=== PATIENT | male | born 1950 | race Caucasian/White ===

== ENCOUNTER 2018-11-15 14:31 | Inpatient (IN) | payer MEDICARE, MEDICAID ==
[2018-11-15] VITALS (8 sets, daily range): BP systolic 110–130; BP diastolic 63–79
[~2018-11-15] VITALS: Ht 167.6 cm; Wt 81.2 kg
[~2018-11-15 14:31] MED LIST: LIDOcaine 2% (20 mg/ml) 5ml cardiac syringe ONE; albumin (human) 25% 100 ML IV solution IV ONE; aminocaproic acid 250 MG/1 ML inj. ONE; calcium chloride 100 MG/1 ML inj IV ONE; heparin 1,000 units/ml 10ml inj ONE; heparin 10,000 units/1 ML INJ ONE; magnesium 1 GM/2 ML inj ONE; methylPREDNISolone sod succ 125mg/2ml vial ONE; papaverine 30 mg/ml 2ml inj. ONE; phenylephrine 10mg/ml inj. ONE; potassium Cl 2 mEq/ml inj IV ONE; sodium bicarbonate (8.4%) 1 mEq/ml syringe ONE
[2018-11-15] MEDS ORDERED: diphenhydrAMINE 25mg capsule PO PRN (15:00)
[2018-11-15] MEDS ORDERED: LIDOcaine/PRILOcaine 5gm cream TP ONE (15:00)
[2018-11-15] MEDS ORDERED: LORazepam 0.5 MG tablet PO PRN (15:00)
[2018-11-15] MEDS ORDERED: ALBU18HF2 INH (16:49)
[2018-11-15] MEDS ORDERED: MONT10TA21 PO (16:49)
[2018-11-15] MEDS ORDERED: INSU100C4 SQ (16:49)
[2018-11-15] MEDS ORDERED: FLUT12AE5 IH (16:49)
[2018-11-15] MEDS ORDERED: CARSR60C PO (16:49)
[2018-11-15] MEDS ORDERED: METF500T PO (16:49)
[2018-11-15] MEDS ORDERED: FLUO20CA39 PO (16:49)
[2018-11-15] MEDS ORDERED: INSU300I3 SUBCUT (16:49)
[2018-11-15] MEDS ORDERED: ATOR20TA PO (16:49)
[2018-11-15] MEDS ORDERED: ASPI-1265 PO (16:49)
[2018-11-15] MEDS ORDERED: ENAL20TA75 PO (16:49)
[2018-11-15] MEDS ORDERED: CLOP75TA35 PO (16:49)
[2018-11-15] MEDS ORDERED: HYDR-4353 PO (16:49)
[2018-11-15] MEDS: normal saline 1,000 ML IV SCH ×2 (17:30→22:17)
[2018-11-15] MEDS ORDERED: midazolam 2 mg/2 ml injection ONE (18:06)
[2018-11-15] MEDS ORDERED: fentaNYL/PF 50MCG/1 ML 2ML syringe ONE (18:06)
[2018-11-15] MEDS ORDERED: LIDOcaine 1% (10mg/ml)w/preservative injection 20ml MDV ONE (18:06)
[2018-11-15] MEDS ORDERED: iohexol 350MG/ML 100ml bottle IV ONE (18:07)
[2018-11-15] MEDS ORDERED: iohexol 350 MG/ML 50ML vial IV ONE (18:31)
[2018-11-15] MEDS ORDERED: MESSAGE TO PHARMACY PO ONE (19:15)
[2018-11-15] MEDS ORDERED: glucagon, human recombinant 1mg kit SUBCUT PRN (19:15)
[2018-11-15] MEDS ORDERED: dextrose 50%-water 50ml dispensing syringe IV PRN (19:15)
[2018-11-15] MEDS ORDERED: dextrose ORAL solution 15 GM/59 ML bottle PO PRN ×2 (19:15)
[2018-11-15] MEDS ORDERED: dextrose 50%-water 50ml dispensing syringe IV ONE (19:21)
[2018-11-15] MEDS: dextrose 50%-water 50ml dispensing syringe IV PRN ×2 (19:24→20:54)
[2018-11-15] MEDS ORDERED: albuterol 2.5 MG/3 ML nebule NEB PRN (19:50)
[2018-11-15] MEDS: budesonide 0.5mg/2ml UD nebule IH SCH (20:00)
--- NOTE | 2018-11-15 20:10 | NUR ---
Problems reprioritized. Patient report given, questions answered & plan of care reviewed with GIOVANNA Urena, I will be taking pt to [facility] rm#311.
--- NOTE | 2018-11-15 20:30 | NUR ---
VSS, pt is in stable condition, You [place] CDI, pt is in [facility] rm#311, pt is in the care of GIOVANNA Malin.
[2018-11-15] MEDS: insulin glargine (Lantus) pen - multi-dose SQ SCH (21:00)
--- NOTE | 2018-11-15 21:14 | NUR ---
reported to Joshua HEREDIA via telephone, awaiting transfer to room 347 Addendum: 11/15/18 at 2116 by Jacky Burkett RN note not for patient, wrong patient.
--- NOTE | 2018-11-15 23:21 | NUR ---
pt not responsive to verbal. blood glucose 30, 1 amp of dextrose 50 administered. recheck blood glucose greater than 150. will continue to monitor. pt ate 1 turkey sandwich and 240 milk. will continue to monitor. new orders. noted. Addendum: 11/16/18 at 0648 by Jacky Burkett RN DR. HEAD, NOTIFIED. NO CODE STATUS NOTED. NO PHYSICAN ASSIGNED TO PT.
[2018-11-16] MEDS ORDERED: dextrose 5%-normal saline 1,000 ML IV SCH (01:45)
--- NOTE | 2018-11-16 02:00 | NUR ---
PT A/O X4. VERBALLY AROUSABLE. MAINTAINED, BLOOD GLUCOSE WITH OUT D5NS. WILL CONTINUE TO MONITOR BLOOD GLUCOSE.
[2018-11-16 02:33] VITALS: BP 133/60
[2018-11-16 06:00] VITALS: BP 162/86
[2018-11-16] MEDS: normal saline 1,000 ML IV SCH ×2 (06:00→15:26)
--- NOTE | 2018-11-16 06:00 | NUR ---
Patient in room MED 311. I have received report from GIOVANNA Rico and had the opportunity to ask questions and assume patient care.
[2018-11-16] MEDS: budesonide 0.5mg/2ml UD nebule IH SCH ×2 (07:35→20:27)
[2018-11-16] MEDS ORDERED: diltiazem SR 60mg capsule (twice daily) PO SCH (08:00)
[2018-11-16] MEDS ORDERED: clopidogrel 75mg tablet PO SCH (08:00)
[2018-11-16] MEDS: FLUoxetine 20mg capsule PO SCH (08:27)
[2018-11-16] MEDS: aspirin 81mg tab.chew PO SCH (08:27)
[2018-11-16] MEDS: atorvastatin 20mg tablet PO SCH (08:27)
[2018-11-16] MEDS: montelukast 10mg tablet PO SCH (08:27)
[2018-11-16] MEDS: lisinopril 20mg tablet PO SCH ×2 (08:27→21:01)
[2018-11-16] MEDS: HYDROcodone/acetaminophen 10/325mg tab PO PRN ×3 (08:28→23:29)
[2018-11-16] MEDS ORDERED: MESSAGE TO NURSING PO ONE ×2 (09:50)
[2018-11-16 11:00] VITALS: BP 149/78
--- NOTE | 2018-11-16 11:13 | NUR ---
Paged hospitalist group to have pt assigned
--- NOTE | 2018-11-16 11:19 | NUR ---
received call back from Dr. Burnette that he will take patient
[2018-11-16 11:30] LABS: HEMATOCRIT 39.1 % (42.0-52.0); HEMOGLOBIN 12.5 g/dl (14.0-17.9); MEAN CORPUSCULAR HGB CONC 32.1 g/dL (33.0-36.5); MEAN CORPUSCULAR VOLUME 87.2 FL (78-98); MEAN PLATELET VOLUME 8.5 FL (7.4-10.4); PLATELET COUNT 285 X10'3 (140-440); RED BLOOD COUNT 4.48 X10'6 (4.70-6.10); RED CELL DISTRIBUTION WIDTH 16.2 % (11.5-14.5); WHITE BLOOD COUNT 8.6 X10'3 (4.5-11.0)
[2018-11-16 11:40] LABS: PARTIAL THROMBOPLASTIN TIME 29 SECONDS (22-32)
[2018-11-16 11:49] LABS: ALANINE AMINOTRANSFERASE 16 U/L (12-78); ALBUMIN/GLOBULIN RATIO 0.6 (1.1-1.5); ALKALINE PHOSPHATASE 91 IU/L (46-116); ANION GAP 5 (8-16); ASPARTATE AMINO TRANSFERASE 16 U/L (10-37); BILIRUBIN,TOTAL 0.6 MG/DL (0.1-1.0); BLOOD UREA NITROGEN 21 MG/DL (7-18); BUN/CREATININE RATIO 21.9 (5.4-32.0); CALCIUM 8.1 MG/DL (8.5-10.1); CHLORIDE 106 MMOL/L (99-107); CREATININE 0.96 MG/DL (0.60-1.10); GLUCOSE 201 MG/DL (70-104); POTASSIUM 5.4 MMOL/L (3.5-5.1); SODIUM 137 MMOL/L (135-145); TOTAL CARBON DIOXIDE 25.8 MMOL/L (24-32); TOTAL PROTEIN 7.9 G/DL (6.4-8.2); eGFR 78 ML/MIN
--- NOTE | 2018-11-16 12:22 | NUR ---
DM Consult: A1C 8.9. Pt/family seen by ADITYA for written/verbal DM ed w/ RD contact information provided. Pt reports going to OR for CABG this admit. RD provided verbal high protein ed; pt agrees to double meats TIDWM. Pt passive to DM ed and family declined verbal DM ed. Pt many dislikes: coffee, tea, jello, pasta, north korean yogurt, cottage cheese, bananas. Dietary notified of preferences. LBM 11/14. Will monitor for additional protein needs and f/u CABG/HH eds once stable post-op. Addendum: 11/16/18 at [address] Amended: Links added. Addendum: 11/16/18 at [address] DM Consult: A1C 8.9. Pt/family seen by ADITYA for written/verbal DM ed w/ RD contact information provided. Pt reports going to OR for CABG this admit. RD provided verbal high protein ed; pt agrees to double meats TIDWM. Pt passive to DM ed and family declined verbal DM ed. Pt many dislikes: coffee, tea, jello, pasta, north korean yogurt, cottage cheese, bananas. Dietary notified of preferences. SO reports pt "eats what he wants and takes his DM shots as prescribed." LBM 11/14. Will monitor for additional protein needs and f/u CABG/HH eds once stable post-op.
[2018-11-16] MEDS ORDERED: DILT-36 PO (14:06)
[2018-11-16] MEDS: insulin Lispro (HumaLOG) vial - multi-dose SQ SCH ×2 (14:15→19:01)
[2018-11-16 15:00] VITALS: BP 132/67
[2018-11-16 18:00] VITALS: BP 103/68
--- NOTE | 2018-11-16 18:00 | NUR ---
Patient in room MED 311. I have received report from Jessica/Lanny HEREDIA's and had the opportunity to ask questions and assume patient care.
--- NOTE | 2018-11-16 18:37 | NUR ---
Problems reprioritized. Patient report given, questions answered & plan of care reviewed with GIOVANNA Cramer.
--- NOTE | 2018-11-16 18:46 | NUR ---
Student documentation and med administration: I have reviewed and agree with all interventions, assessments performed and documented by Jessica HEREDIA.
[2018-11-16] MEDS: ipratropium/albuterol 3ml nebule NEB SCH (20:26)
[2018-11-16] MEDS: insulin glargine (Lantus) pen - multi-dose SQ SCH (21:09)
[2018-11-16 22:00] VITALS: BP 115/68
--- NOTE | 2018-11-17 02:30 | NUR ---
311 Lewis Ortiz Patient needs hiflow Oxygen to RT, will page Raphael to request fluids dc'd
[2018-11-17] MEDS: ipratropium/albuterol 3ml nebule NEB SCH ×4 (02:43→20:02)
--- NOTE | 2018-11-17 02:54 | NUR ---
promotional table spacer promotional table spacer Page Sent promotional table spacer PAGER ID: [phone] MESSAGE: [id number] 311 Lewis Ortiz Sats at 83-86% Oxygen @4.5 LNC, urinating well, tolerating fluids, has coarse crackles throughout, can we DC NS at 80/mls hr? (155 character message out of a maximum of 240) Close [X] Send Another Page Thank you for visiting [facility] promotional table spacer promotional table spacer
[2018-11-17 06:00] VITALS: BP 147/79
[2018-11-17 06:00] LABS: BASOPHILS # (AUTO) 0.1 X10'3 (0-0.2); BASOPHILS % (AUTO) 0.9 % (0-1); EOSINOPHILS # (AUTO) 0.2 X10'3 (0-0.9); EOSINOPHILS % (AUTO) 2.8 % (0-6); HEMATOCRIT 38.6 % (42.0-52.0); HEMOGLOBIN 12.5 g/dl (14.0-17.9); LYMPHOCYTES # (AUTO) 2.6 X10'3 (1.1-4.8); LYMPHOCYTES % (AUTO) 32.4 % (21-51); MEAN CORPUSCULAR HEMOGLOBIN 28.4 PG (27.0-31.0); MEAN CORPUSCULAR HGB CONC 32.3 g/dL (33.0-36.5); MEAN CORPUSCULAR VOLUME 87.9 FL (78-98); MEAN PLATELET VOLUME 8.6 FL (7.4-10.4); MONOCYTES % (AUTO) 12.2 % (2-12); NEUTROPHILS # (AUTO) 4.1 X10'3 (1.8-7.7); NEUTROPHILS % (AUTO) 51.7 % (42-75); PLATELET COUNT 276 X10'3 (140-440); RED BLOOD COUNT 4.39 X10'6 (4.70-6.10); RED CELL DISTRIBUTION WIDTH 16.2 % (11.5-14.5); WHITE BLOOD COUNT 7.9 X10'3 (4.5-11.0)
[2018-11-17 06:24] LABS: ALANINE AMINOTRANSFERASE 14 U/L (12-78); ALBUMIN 2.9 G/DL (3.4-5.0); ALBUMIN/GLOBULIN RATIO 0.6 (1.1-1.5); ALKALINE PHOSPHATASE 90 IU/L (46-116); ANION GAP 10 (8-16); ASPARTATE AMINO TRANSFERASE 16 U/L (10-37); BILIRUBIN,TOTAL 0.5 MG/DL (0.1-1.0); BLOOD UREA NITROGEN 24 MG/DL (7-18); BUN/CREATININE RATIO 25.8 (5.4-32.0); CALCIUM 8.3 MG/DL (8.5-10.1); CHLORIDE 106 MMOL/L (99-107); CREATININE 0.93 MG/DL (0.60-1.10); GLUCOSE 223 MG/DL (70-104); POTASSIUM 4.8 MMOL/L (3.5-5.1); SODIUM 139 MMOL/L (135-145); TOTAL CARBON DIOXIDE 23.2 MMOL/L (24-32); TOTAL PROTEIN 7.9 G/DL (6.4-8.2); eGFR 81 ML/MIN
--- NOTE | 2018-11-17 06:56 | NUR ---
Problems reprioritized. Patient report given, questions answered & plan of care reviewed with Morena HEREDIA.
[2018-11-17] MEDS: aspirin 81mg tab.chew PO SCH (08:50)
[2018-11-17] MEDS: diltiazem CD 180mg cap (once-daily) PO SCH (08:50)
[2018-11-17] MEDS: atorvastatin 20mg tablet PO SCH (08:51)
[2018-11-17] MEDS: FLUoxetine 20mg capsule PO SCH (08:51)
[2018-11-17] MEDS: montelukast 10mg tablet PO SCH (08:51)
[2018-11-17] MEDS: lisinopril 20mg tablet PO SCH ×2 (08:55→21:39)
[2018-11-17] MEDS: HYDROcodone/acetaminophen 10/325mg tab PO PRN ×2 (08:56→16:55)
[2018-11-17] MEDS: insulin Lispro (HumaLOG) vial - multi-dose SQ SCH ×4 (09:01→22:03)
[2018-11-17] MEDS: budesonide 0.5mg/2ml UD nebule IH SCH ×2 (09:20→20:02)
[2018-11-17 10:20] LABS: ABG BASE EXCESS -3.1 mmol/L (-2.0-3.0); ABG HCO3 22.2 mmol/L (22.0-26.0); ABG OXYGEN SATURATION 92.2 % (95-98); ABG PCO2 (T) 40.7 mmHg (35.0-45.0); ABG PH (T) 7.354 (7.350-7.450); ALLEN'S TEST Positive; FCOHb 1.3 % (0.5-1.5); FLOW 5 L/min; FMetHb 0.1 % (0.3-1.12); FO2Hb 90.9 % (94-100); TOTAL HEMOGLOBIN 13.2 G/dl (14.0-17.9)
[2018-11-17 11:00] VITALS: BP 124/66
--- NOTE | 2018-11-17 12:15 | NUR ---
Patient in room MED 311. I have received report from GIOVANNA STOCKTON, and had the opportunity to ask questions and assume patient care.
--- NOTE | 2018-11-17 13:41 | NUR ---
AT 0800 IN AGREEMENT WITH STUDENT'S ASSESSMENT. Addendum: 11/17/18 at 1342 by Kristine Srinivasan RN Amended: Links added.
[2018-11-17 15:00] VITALS: BP 135/77
[2018-11-17] MEDS ORDERED: insulin regular, human 100 UNIT in normal saline 100ml IV soln 100 ML IV SCH ×2 (15:57)
[2018-11-17] MEDS ORDERED: magnesium 2GM in 50ml NS 50 ML IV PRN (16:00)
[2018-11-17] MEDS ORDERED: MALTODEXTRIN/FRUCTOSE 0.68 KCAL/ML LIQUID 296ML BOTTLE PO ONE (16:00)
[2018-11-17] MEDS ORDERED: cefazolin/dext.iso 2gm/50ml 50 ML IV ONE (16:00)
[2018-11-17] MEDS ORDERED: vancomycin/NS 1 GM ADD-VANTAGE 250 ML IV ONE (16:00)
[2018-11-17] MEDS ORDERED: gabapentin 400mg capsule PO ONE (16:00)
[2018-11-17] MEDS ORDERED: potassium Cl 20mEq/100mL bag 100 ML IV PRN (16:00)
[2018-11-17] MEDS ORDERED: insulin glargine (Lantus) pen - multi-dose SQ PRN (16:00)
[2018-11-17] MEDS ORDERED: MESSAGE TO NURSING PO ONE ×4 (16:00)
[2018-11-17] MEDS ORDERED: magnesium 4gm in 100ml NS 100 ML IV PRN (16:00)
[2018-11-17] MEDS ORDERED: dextrose 50%-water 50ml dispensing syringe IV PRN (16:00)
[2018-11-17] MEDS ORDERED: potassium Cl 20 mEq SR tablet PO PRN (16:00)
[2018-11-17] MEDS ORDERED: ringers solution, lacted 1,000 ML IV ONE (17:11)
[2018-11-17 18:00] VITALS: BP 126/81
--- NOTE | 2018-11-17 18:00 | NUR ---
Patient in room MED 311. I have received report from GIOVANNA Young and had the opportunity to ask questions and assume patient care.
[2018-11-17 18:14] LABS: MAGNESIUM 2.1 MG/DL (1.5-2.4)
--- NOTE | 2018-11-17 19:29 | NUR ---
Pt refused nutritional coverage
[2018-11-17] MEDS: mupirocin 2% ointment 22GM NS SCH (20:00)
[2018-11-17] MEDS: metoprolol tartrate 12.5mg (1/2 tablet) PO SCH (21:39)
[2018-11-17 22:00] VITALS: BP 131/84
[2018-11-18] VITALS (24 sets, daily range): BP systolic 90–126; BP diastolic 49–69
[2018-11-18] MEDS: HYDROcodone/acetaminophen 10/325mg tab PO PRN (00:10)
[2018-11-18 01:52] LABS: BASOPHILS # (AUTO) 0.1 X10'3 (0-0.2); EOSINOPHILS # (AUTO) 0.2 X10'3 (0-0.9); EOSINOPHILS % (AUTO) 2.1 % (0-6); HEMATOCRIT 39.5 % (42.0-52.0); HEMOGLOBIN 12.9 g/dl (14.0-17.9); LYMPHOCYTES % (AUTO) 27.1 % (21-51); MEAN CORPUSCULAR HEMOGLOBIN 28.4 PG (27.0-31.0); MEAN CORPUSCULAR HGB CONC 32.6 g/dL (33.0-36.5); MEAN PLATELET VOLUME 8.3 FL (7.4-10.4); MONOCYTES % (AUTO) 13.1 % (2-12); NEUTROPHILS # (AUTO) 4.1 X10'3 (1.8-7.7); NEUTROPHILS % (AUTO) 56.7 % (42-75); PLATELET COUNT 287 X10'3 (140-440); RED BLOOD COUNT 4.54 X10'6 (4.70-6.10); RED CELL DISTRIBUTION WIDTH 15.7 % (11.5-14.5); WHITE BLOOD COUNT 7.3 X10'3 (4.5-11.0)
[2018-11-18 02:05] LABS: ALANINE AMINOTRANSFERASE 15 U/L (12-78); ALBUMIN 3.3 G/DL (3.4-5.0); ALBUMIN/GLOBULIN RATIO 0.6 (1.1-1.5); ALKALINE PHOSPHATASE 109 IU/L (46-116); ANION GAP 9 (8-16); ASPARTATE AMINO TRANSFERASE 14 U/L (10-37); BILIRUBIN,TOTAL 0.6 MG/DL (0.1-1.0); BLOOD UREA NITROGEN 23 MG/DL (7-18); BUN/CREATININE RATIO 21.7 (5.4-32.0); CALCIUM 8.9 MG/DL (8.5-10.1); CHLORIDE 106 MMOL/L (99-107); CREATININE 1.06 MG/DL (0.60-1.10); GLUCOSE 93 MG/DL (70-104); POTASSIUM 4.8 MMOL/L (3.5-5.1); SODIUM 143 MMOL/L (135-145); TOTAL CARBON DIOXIDE 27.6 MMOL/L (24-32); TOTAL PROTEIN 8.6 G/DL (6.4-8.2); eGFR 70 ML/MIN
[2018-11-18] MEDS: ipratropium/albuterol 3ml nebule NEB SCH ×2 (02:45→07:28)
[2018-11-18] MEDS ORDERED: ROPIVAcaine 0.5% (5mg/ml) 30ml vial ONE (05:12)
[2018-11-18 05:13] LABS: CLARITY,URINE CLEAR (Clear); COLOR,URINE YELLOW (Yellow); GLUCOSE, URINE NEGATIVE (Neg); KETONES,URINE NEGATIVE (Neg); LEUKOCYTE ESTERASE ,URINE NEGATIVE (Neg); NITRITES, URINE NEGATIVE (Neg); OCCULT BLOOD,URINE NEGATIVE (Neg); PH,URINE 5.5 (4.8-8.0); PROTEIN,URINE NEGATIVE (Neg)
[2018-11-18 05:18] LABS: UA COLLECTION TYPE URINAL
[2018-11-18] MEDS ORDERED: vancomycin/NS 1 GM ADD-VANTAGE 250 ML IV ONE (05:30)
[2018-11-18] MEDS ORDERED: cefazolin/dext.iso 2gm/50ml 50 ML IV ONE (05:30)
[2018-11-18] MEDS: insulin Lispro (HumaLOG) vial - multi-dose SQ SCH ×3 (05:45→18:00)
[2018-11-18] MEDS ORDERED: LORazepam 2 mg/ml vial IV ONE (06:00)
[2018-11-18] MEDS ORDERED: famotidine 20mg tablet PO ONE (06:00)
--- NOTE | 2018-11-18 06:00 | NUR ---
Problems reprioritized. Patient report given, questions answered & plan of care reviewed with GIOVANNA Cuevas.
--- NOTE | 2018-11-18 06:15 | NUR ---
Patient in room MED 311. I have received report from GIOVANNA Oliveros and had the opportunity to ask questions and assume patient care.
[2018-11-18] MEDS ORDERED: midazolam 2 mg/2 ml injection ONE (06:41)
[2018-11-18] MEDS ORDERED: SUFENTANIL CITRATE 50 MCG/ML 2ml ampule IV ONE (06:41)
[2018-11-18] MEDS: metoprolol tartrate 12.5mg (1/2 tablet) PO SCH (06:41)
--- NOTE | 2018-11-18 06:45 | NUR ---
Patient left the [facility] unit with OR staff to have CABG. Patient was alert and oriented and in stable condition. Family was at his side and took personal items with them as they acknowledged that they knew the patient would not be returning to the [facility]E unit but going to the ICU following surgery.
[2018-11-18] MEDS ORDERED: protamine sulf. 10mg/ml inj. IV ONE (06:50)
[2018-11-18] MEDS ORDERED: DOPamine/D5W 400mg/250ml bag IV ONE (06:50)
[2018-11-18] MEDS ORDERED: ceFAZolin 1000mg inj ONE ×2 (06:50→11:06)
[2018-11-18] MEDS ORDERED: calcium chloride 100 MG/1 ML inj IV ONE (06:50)
[2018-11-18] MEDS ORDERED: nitroGLYCERIN in D5W 50mg/250ml (Tridil) infusion IV ONE (06:50)
[2018-11-18] MEDS ORDERED: isoflurane 100ml inhalation liquid IH ONE (06:50)
[2018-11-18 07:25] LABS: ABG BASE EXCESS -2.9 mmol/L (-2.0-3.0); ABG HCO3 23.4 mmol/L (22.0-26.0); ABG OXYGEN SATURATION 99.3 % (95-98); ABG PCO2 47.2 mmHg (35.0-45.0); ABG PH 7.314 (7.350-7.450); ABG PO2 273.7 mmHg (60.0-100.0); CL (ABG) 103 mmol/L (99-107); FCOHb 0.7 % (0.5-1.5); FMetHb 0.2 % (0.3-1.12); FO2Hb 98.4 % (94-100); GLUCOSE (ABG) 292 mg/dl (70-104); IONIZED CA (ABG) 1.14 mmol/L (1.03-1.32); K (ABG) 4.4 mmol/L (3.3-5.1); NA (ABG) 139 mmol/L (135-145); TOTAL HEMOGLOBIN 11.9 G/dl (14.0-17.9)
[2018-11-18] MEDS: budesonide 0.5mg/2ml UD nebule IH SCH (07:28)
[2018-11-18] MEDS: aspirin 81mg tab.chew PO SCH (08:00)
[2018-11-18] MEDS: diltiazem CD 180mg cap (once-daily) PO SCH (08:00)
[2018-11-18] MEDS: montelukast 10mg tablet PO SCH (08:00)
[2018-11-18] MEDS: mupirocin 2% ointment 22GM NS SCH (08:00)
[2018-11-18] MEDS: lisinopril 20mg tablet PO SCH (08:00)
[2018-11-18] MEDS: FLUoxetine 20mg capsule PO SCH (08:00)
[2018-11-18] MEDS: atorvastatin 20mg tablet PO SCH (08:00)
[2018-11-18] MEDS ORDERED: ipratropium/albuterol 3ml nebule IH PRN (08:55)
[2018-11-18 09:06] LABS: ABG BASE EXCESS 1.1 mmol/L (-2.0-3.0); ABG HCO3 25.5 mmol/L (22.0-26.0); ABG OXYGEN SATURATION 99.2 % (95-98); ABG PCO2 39.5 mmHg (35.0-45.0); ABG PH 7.428 (7.350-7.450); ABG PO2 415.5 mmHg (60.0-100.0); CL (ABG) 104 mmol/L (99-107); FCOHb 0.6 % (0.5-1.5); FMetHb 0.3 % (0.3-1.12); FO2Hb 98.3 % (94-100); GLUCOSE (ABG) 80 mg/dl (70-104); IONIZED CA (ABG) 1.03 mmol/L (1.03-1.32); K (ABG) 4.5 mmol/L (3.3-5.1); NA (ABG) 139 mmol/L (135-145)
[2018-11-18 09:50] LABS: ABG BASE EXCESS VENOUS 3.2 mmol/L; ABG HCO3 VENOUS 28.3 mmol/L; ABG PCO2 VENOUS 46.2 mmHg; ABG PO2 VENOUS 47.6 mmHg; CL (ABG) 104 mmol/L (99-107); FCOHb VENOUS 1.2 %; FHHb VENOUS 15.8 %; FMetHb VENOUS 0.7 %; FO2Hb VENOUS 82.3 %; GLUCOSE (ABG) 50 mg/dl (70-104); IONIZED CA (ABG) 1.05 mmol/L (1.03-1.32); K (ABG) 4.4 mmol/L (3.3-5.1); NA (ABG) 141 mmol/L (135-145); TOTAL HEMOGLOBIN 7.8 G/dl (14.0-17.9)
[2018-11-18] MEDS ORDERED: MESSAGE TO NURSING PO ONE (10:00)
[2018-11-18 10:01] LABS: ABG BASE EXCESS -0.8 mmol/L (-2.0-3.0); ABG HCO3 24.8 mmol/L (22.0-26.0); ABG OXYGEN SATURATION 99.2 % (95-98); ABG PCO2 46.1 mmHg (35.0-45.0); ABG PH 7.349 (7.350-7.450); ABG PO2 314.7 mmHg (60.0-100.0); CL (ABG) 103 mmol/L (99-107); FCOHb 0.9 % (0.5-1.5); FMetHb 0.6 % (0.3-1.12); FO2Hb 97.7 % (94-100); GLUCOSE (ABG) 136 mg/dl (70-104); IONIZED CA (ABG) 1.07 mmol/L (1.03-1.32); K (ABG) 4.4 mmol/L (3.3-5.1); NA (ABG) 137 mmol/L (135-145); TOTAL HEMOGLOBIN 7.9 G/dl (14.0-17.9)
[2018-11-18 10:36] LABS: ABG BASE EXCESS 0.4 mmol/L (-2.0-3.0); ABG HCO3 24.2 mmol/L (22.0-26.0); ABG PCO2 35.5 mmHg (35.0-45.0); ABG PH 7.452 (7.350-7.450); ABG PO2 266.7 mmHg (60.0-100.0); CL (ABG) 105 mmol/L (99-107); FCOHb 0.6 % (0.5-1.5); FMetHb 0.5 % (0.3-1.12); FO2Hb 97.9 % (94-100); GLUCOSE (ABG) 104 mg/dl (70-104); IONIZED CA (ABG) 1.01 mmol/L (1.03-1.32); K (ABG) 5.4 mmol/L (3.3-5.1); NA (ABG) 137 mmol/L (135-145); TOTAL HEMOGLOBIN 8.1 G/dl (14.0-17.9)
[2018-11-18] MEDS ORDERED: epiNEPHrine 1 mg/ml inj ONE (10:53)
[2018-11-18] MEDS ORDERED: phenylephrine 10mg/ml inj. ONE (10:53)
[2018-11-18] MEDS ORDERED: etomidate 2mg/ml inj. ONE (10:53)
[2018-11-18] MEDS ORDERED: LIDOcaine 2% (20mg/ml) 5ml vial ONE (10:53)
[2018-11-18] MEDS ORDERED: rocuronium 10mg/ml inj IV ONE (10:53)
[2018-11-18] MEDS ORDERED: acetaminophen 1,000mg/100ml IV 100 ML IV ONE (10:55)
[2018-11-18] MEDS ORDERED: propofol inj 20 ML IV ONE (10:59)
[2018-11-18 11:10] LABS: ABG BASE EXCESS 1.6 mmol/L (-2.0-3.0); ABG HCO3 24.8 mmol/L (22.0-26.0); ABG OXYGEN SATURATION 98.9 % (95-98); ABG PCO2 33.1 mmHg (35.0-45.0); ABG PH 7.493 (7.350-7.450); ABG PO2 586.2 mmHg (60.0-100.0); CL (ABG) 102 mmol/L (99-107); FCOHb 0.4 % (0.5-1.5); FMetHb 0.7 % (0.3-1.12); FO2Hb 97.8 % (94-100); GLUCOSE (ABG) 136 mg/dl (70-104); IONIZED CA (ABG) 1.34 mmol/L (1.03-1.32); K (ABG) 5.3 mmol/L (3.3-5.1); NA (ABG) 134 mmol/L (135-145); TOTAL HEMOGLOBIN 7.9 G/dl (14.0-17.9)
[2018-11-18 11:20] LABS: ACT @ 1.70 U 346 SEC (193-297); ACT @ 2.84 U 531 SEC (260-420); BASELINE ACT 163 SEC (101-148); PATIENT WEIGHT 77.0k KG
[2018-11-18 11:51] LABS: ABG BASE EXCESS VENOUS 1.5 mmol/L; ABG HCO3 VENOUS 27.1 mmol/L; ABG PO2 VENOUS 38.7 mmHg; CL (ABG) 103 mmol/L (99-107); FCOHb VENOUS 1.3 %; FHHb VENOUS 27.2 %; FMetHb VENOUS 0.7 %; FO2Hb VENOUS 70.8 %; GLUCOSE (ABG) 183 mg/dl (70-104); IONIZED CA (ABG) 1.12 mmol/L (1.03-1.32); K (ABG) 4.9 mmol/L (3.3-5.1); NA (ABG) 138 mmol/L (135-145); TOTAL HEMOGLOBIN 8.8 G/dl (14.0-17.9)
[2018-11-18] MEDS ORDERED: NORMAL SALINE IV ONE (11:55)
[2018-11-18] MEDS ORDERED: DESMOPRESSIN IV ONE (11:55)
[2018-11-18 12:20] LABS: ACTIVATED CLOTTING TIME 123 SEC (101-148)
[2018-11-18 12:43] LABS: PARTIAL THROMBOPLASTIN TIME 30 SECONDS (22-32)
[2018-11-18] MEDS ORDERED: DOPamine 400mg/D5W 250ml 250 ML IV PRN ×2 (12:47→13:35)
[2018-11-18] MEDS ORDERED: niCARDipine-NS 40mg/200ml IVPB 200 ML IV PRN ×2 (12:47→13:36)
[2018-11-18] MEDS ORDERED: nitroGLYCERIN-Tridil 50MG/D5W 250 ML IV PRN ×2 (12:47→13:35)
[2018-11-18] MEDS ORDERED: magnesium 4gm in 100ml NS 100 ML IV PRN (12:50)
[2018-11-18] MEDS ORDERED: magnesium hydroxide 30ml (MOM) UD suspension PO PRN (12:50)
[2018-11-18] MEDS ORDERED: Neutra Phos packet PO PRN (12:50)
[2018-11-18] MEDS ORDERED: potassium Cl 20 mEq SR tablet PO PRN (12:50)
[2018-11-18] MEDS ORDERED: dextrose 50%-water 50ml dispensing syringe IV PRN (12:50)
[2018-11-18] MEDS ORDERED: pantoprazole 40 MG vial IV ONE (12:50)
[2018-11-18] MEDS ORDERED: magnesium 2GM in 50ml NS 50 ML IV PRN (12:50)
[2018-11-18] MEDS ORDERED: insulin regular, human inj. 100 UNITS in normal saline 100ml IV soln 100 ML IV SCH ×2 (12:50)
[2018-11-18] MEDS ORDERED: sodium phosphate inj. 30 MMOL in dextrose 5%-water 250 ML IV PRN (12:50)
[2018-11-18] MEDS ORDERED: metoclopramide 5 mg/ml inj IV PRN (12:50)
[2018-11-18] MEDS ORDERED: sodium phosphate inj. 15 MMOL in dextrose 5%-water 150 ML IV PRN (12:50)
[2018-11-18] MEDS ORDERED: epiNEPHrine inj 5 MG, calcium chloride inj. 1,000 MG in normal saline 250ml IV soln 250 ML IV SCH ×2 (12:50→13:31)
[2018-11-18] MEDS ORDERED: normal saline 250ml IV soln 250 ML IV PRN (12:50)
[2018-11-18] MEDS ORDERED: acetaminophen 325mg tablet PO PRN (12:50)
[2018-11-18] MEDS ORDERED: albumin (Human) 5% 250ml 250 ML IV ONE (13:00)
--- NOTE | 2018-11-18 13:00 | NUR ---
Received to room 2041, accompanied by MDs and surgical crew. Placed on ventilator, to manager cancer, arterial line and PA line pressure monitored. Chest tubes to suction at 20 cm. Guevara cath to gravity drainage. Dressings are dry and intact. See assessment record. All vasoactive drugs are infusing via central line.
[2018-11-18 13:15] LABS: ABG BASE EXCESS -1.4 mmol/L (-2.0-3.0); ABG HCO3 25.5 mmol/L (22.0-26.0); ABG OXYGEN SATURATION 98.1 % (95-98); ABG PCO2 (T) 51.5 mmHg (35.0-45.0); ABG PH (T) 7.309 (7.350-7.450); ABG PO2 (T) 134.3 mmHg (83-108); FCOHb 0.4 % (0.5-1.5); FMetHb 0.2 % (0.3-1.12); FO2Hb 97.5 % (94-100); MINUTE VOLUME 8 L/min; PATIENT TEMPERATURE 36.4; PEEP 5 cm H2O; RESPIRATORY RATE 12 b/min; RESPIRATORY RATE (OBSERVED) 12 b/min; TIDAL VOLUME 650 mL; TOTAL HEMOGLOBIN 11.8 G/dl (14.0-17.9)
[2018-11-18 13:27] LABS: BASOPHILS % (AUTO) 0.1 % (0-1); EOSINOPHILS % (AUTO) 0.1 % (0-6); HEMATOCRIT 33.9 % (42.0-52.0); HEMOGLOBIN 11.1 g/dl (14.0-17.9); LYMPHOCYTES # (AUTO) 2.5 X10'3 (1.1-4.8); LYMPHOCYTES % (AUTO) 16.1 % (21-51); MEAN CORPUSCULAR HEMOGLOBIN 28.2 PG (27.0-31.0); MEAN CORPUSCULAR HGB CONC 32.8 g/dL (33.0-36.5); MEAN CORPUSCULAR VOLUME 86.1 FL (78-98); MEAN PLATELET VOLUME 8.3 FL (7.4-10.4); MONOCYTES # (AUTO) 0.5 X10'3 (0-0.9); MONOCYTES % (AUTO) 3.3 % (2-12); NEUTROPHILS # (AUTO) 12.7 X10'3 (1.8-7.7); NEUTROPHILS % (AUTO) 80.4 % (42-75); PLATELET COUNT 155 X10'3 (140-440); RED BLOOD COUNT 3.94 X10'6 (4.70-6.10); RED CELL DISTRIBUTION WIDTH 15.5 % (11.5-14.5); WHITE BLOOD COUNT 15.8 X10'3 (4.5-11.0)
[2018-11-18 13:40] LABS: PARTIAL THROMBOPLASTIN TIME 26 SECONDS (22-32)
[2018-11-18] MEDS: albumin (Human) 5% 250ml 250 ML IV PRN ×3 (13:43→17:17)
[2018-11-18 13:44] LABS: ALANINE AMINOTRANSFERASE 53 U/L (12-78); ALBUMIN 2.5 G/DL (3.4-5.0); ALBUMIN/GLOBULIN RATIO 0.8 (1.1-1.5); ALKALINE PHOSPHATASE 65 IU/L (46-116); ANION GAP 6 (8-16); BILIRUBIN,TOTAL 1.1 MG/DL (0.1-1.0); BLOOD UREA NITROGEN 19 MG/DL (7-18); BUN/CREATININE RATIO 19.8 (5.4-32.0); CHLORIDE 111 MMOL/L (99-107); CREATININE 0.96 MG/DL (0.60-1.10); GLUCOSE 104 MG/DL (70-104); MAGNESIUM 3.3 MG/DL (1.5-2.4); SODIUM 145 MMOL/L (135-145); TOTAL CARBON DIOXIDE 28.1 MMOL/L (24-32); TOTAL PROTEIN 5.6 G/DL (6.4-8.2); eGFR 78 ML/MIN
[2018-11-18 13:45] LABS: ASPARTATE AMINO TRANSFERASE 120 U/L (10-37); PHOSPHORUS 2.3 MG/DL (2.3-4.5); POTASSIUM 4.1 MMOL/L (3.5-5.1)
[2018-11-18] MEDS: potassium Cl 20mEq/100mL bag 100 ML IV PRN ×2 (14:21→16:04)
[2018-11-18] MEDS: gabapentin 300mg capsule PO SCH ×2 (14:44→19:39)
[2018-11-18] MEDS: insulin regular, human 100 UNIT in normal saline 100ml IV soln 100 ML IV SCH ×2 (15:11)
[2018-11-18] MEDS: sodium chloride 0.45% 1,000 ML IV SCH (16:43)
[2018-11-18] MEDS: ceFAZolin 1GM/D5W- ADD-VANTAGE 50 ML IV SCH (17:17)
[2018-11-18] MEDS: milrinone (Primacor) 20mg/D5W 100 ML IV SCH (17:34)
[2018-11-18 18:05] LABS: BASOPHILS % (AUTO) 0.1 % (0-1); EOSINOPHILS % (AUTO) 0 % (0-6); HEMATOCRIT 26.5 % (42.0-52.0); HEMOGLOBIN 8.7 g/dl (14.0-17.9); LYMPHOCYTES # (AUTO) 0.5 X10'3 (1.1-4.8); LYMPHOCYTES % (AUTO) 3.9 % (21-51); MEAN CORPUSCULAR HEMOGLOBIN 28.3 PG (27.0-31.0); MEAN CORPUSCULAR HGB CONC 32.9 g/dL (33.0-36.5); MEAN CORPUSCULAR VOLUME 85.9 FL (78-98); MEAN PLATELET VOLUME 8.3 FL (7.4-10.4); MONOCYTES # (AUTO) 0.6 X10'3 (0-0.9); MONOCYTES % (AUTO) 4.8 % (2-12); NEUTROPHILS % (AUTO) 91.2 % (42-75); PLATELET COUNT 134 X10'3 (140-440); RED BLOOD COUNT 3.09 X10'6 (4.70-6.10); RED CELL DISTRIBUTION WIDTH 15.8 % (11.5-14.5); WHITE BLOOD COUNT 13.1 X10'3 (4.5-11.0)
[2018-11-18 18:16] LABS: ALBUMIN 3.1 G/DL (3.4-5.0); ANION GAP 7 (8-16); BLOOD UREA NITROGEN 21 MG/DL (7-18); BUN/CREATININE RATIO 21.2 (5.4-32.0); CALCIUM 7.9 MG/DL (8.5-10.1); CHLORIDE 113 MMOL/L (99-107); CREATININE 0.99 MG/DL (0.60-1.10); GLUCOSE 132 MG/DL (70-104); MAGNESIUM 2.6 MG/DL (1.5-2.4); PHOSPHORUS 3.5 MG/DL (2.3-4.5); POTASSIUM 5.7 MMOL/L (3.5-5.1); SODIUM 145 MMOL/L (135-145); TOTAL CARBON DIOXIDE 25.3 MMOL/L (24-32); eGFR 75 ML/MIN
--- NOTE | 2018-11-18 18:33 | NUR ---
Problems reprioritized. Patient report given, questions answered & plan of care reviewed with Leslie HEREDIA.
[2018-11-18] MEDS: morphine 4 MG/ML inj SYRINge IV PRN ×2 (19:38→22:06)
[2018-11-18] MEDS: mupirocin 2% nasal ointment 1gm UD NS SCH (19:39)
[2018-11-18] MEDS: vancomycin/NS 1 GM ADD-VANTAGE 250 ML IV SCH (19:39)
[2018-11-18] MEDS: docusate sod 100mg capsule PO SCH (19:46)
[2018-11-18] MEDS ORDERED: epiNEPHrine inj 5 MG, calcium chloride inj. 1,000 MG in normal saline 250ml IV soln 250 ML IV PRN (20:27)
--- NOTE | 2018-11-18 23:13 | NUR ---
183..Patient in room ICU 2041. I have received report from Marisol HEREDIA and had the opportunity to ask questions and assume patient care.
--- NOTE | 2018-11-18 23:14 | NUR ---
2000..Assessment as noted, morphine given for pain seems effective, weaning epical as tolerated.
--- NOTE | 2018-11-18 23:15 | NUR ---
2230..Transfused 2 units prbc as per med orders, with no reactions noted.
[2018-11-19] VITALS (24 sets, daily range): BP systolic 88–150; BP diastolic 48–70
[2018-11-19] MEDS: morphine 4 MG/ML inj SYRINge IV PRN ×10 (00:20→17:37)
[2018-11-19] MEDS: ceFAZolin 1GM/D5W- ADD-VANTAGE 50 ML IV SCH ×4 (00:20→23:48)
--- NOTE | 2018-11-19 01:22 | NUR ---
0100..Morphine given with good effect for pain, resting quietly, no changes noted.
[2018-11-19] MEDS: milrinone (Primacor) 20mg/D5W 100 ML IV SCH ×2 (02:11→13:45)
[2018-11-19 02:24] LABS: BASOPHILS % (AUTO) 0 % (0-1); EOSINOPHILS % (AUTO) 0 % (0-6); HEMATOCRIT 27.9 % (42.0-52.0); HEMOGLOBIN 9.3 g/dl (14.0-17.9); LYMPHOCYTES # (AUTO) 0.9 X10'3 (1.1-4.8); LYMPHOCYTES % (AUTO) 6.4 % (21-51); MEAN CORPUSCULAR HEMOGLOBIN 27.9 PG (27.0-31.0); MEAN CORPUSCULAR HGB CONC 33.1 g/dL (33.0-36.5); MEAN CORPUSCULAR VOLUME 84.3 FL (78-98); MONOCYTES # (AUTO) 0.7 X10'3 (0-0.9); NEUTROPHILS # (AUTO) 12.2 X10'3 (1.8-7.7); NEUTROPHILS % (AUTO) 88.6 % (42-75); PLATELET COUNT 101 X10'3 (140-440); RED BLOOD COUNT 3.32 X10'6 (4.70-6.10); RED CELL DISTRIBUTION WIDTH 16.6 % (11.5-14.5); WHITE BLOOD COUNT 13.8 X10'3 (4.5-11.0)
[2018-11-19 02:32] LABS: PARTIAL THROMBOPLASTIN TIME 29 SECONDS (22-32)
[2018-11-19 02:41] LABS: ALANINE AMINOTRANSFERASE 34 U/L (12-78); ALBUMIN 2.9 G/DL (3.4-5.0); ALBUMIN/GLOBULIN RATIO 1.3 (1.1-1.5); ALKALINE PHOSPHATASE 43 IU/L (46-116); ANION GAP 7 (8-16); ASPARTATE AMINO TRANSFERASE 62 U/L (10-37); BILIRUBIN,TOTAL 0.7 MG/DL (0.1-1.0); BLOOD UREA NITROGEN 28 MG/DL (7-18); BUN/CREATININE RATIO 25.2 (5.4-32.0); CALCIUM 8.4 MG/DL (8.5-10.1); CHLORIDE 114 MMOL/L (99-107); CREATININE 1.11 MG/DL (0.60-1.10); GLUCOSE 134 MG/DL (70-104); MAGNESIUM 2.4 MG/DL (1.5-2.4); PHOSPHORUS 4.6 MG/DL (2.3-4.5); POTASSIUM 5.6 MMOL/L (3.5-5.1); SODIUM 145 MMOL/L (135-145); TOTAL CARBON DIOXIDE 23.8 MMOL/L (24-32); TOTAL PROTEIN 5.2 G/DL (6.4-8.2); eGFR 66 ML/MIN
--- NOTE | 2018-11-19 03:10 | NUR ---
0300..Morphine again given with good effect, no other changes noted.
[2018-11-19 03:30] LABS: ABG BASE EXCESS -6.4 mmol/L (-2.0-3.0); ABG HCO3 18.9 mmol/L (22.0-26.0); ABG OXYGEN SATURATION 91.2 % (95-98); ABG PCO2 (T) 38.1 mmHg (35.0-45.0); ABG PH (T) 7.318 (7.350-7.450); ABG PO2 (T) 68.2 mmHg (83-108); FCOHb 0.2 % (0.5-1.5); FMetHb 0.1 % (0.3-1.12); FO2Hb 90.9 % (94-100); MINUTE VOLUME 10 L/min; PEEP 5 cm H2O; RESPIRATORY RATE 14 b/min; RESPIRATORY RATE (OBSERVED) 15 b/min; TIDAL VOLUME 650 mL; TOTAL HEMOGLOBIN 9.9 G/dl (14.0-17.9)
--- NOTE | 2018-11-19 05:36 | NUR ---
0500..Bp remains labile, unable to wean epical, no other changes noted.
--- NOTE | 2018-11-19 06:28 | NUR ---
0625..Problems reprioritized. Patient report given, questions answered & plan of care reviewed with Olivia HEREDIA.
--- NOTE | 2018-11-19 06:30 | NUR ---
Patient in room ICU 2041. I have received report from Soraya HEREDIA and had the opportunity to ask questions and assume patient care.
[2018-11-19] MEDS: pantoprazole 40mg Tablet.DR PO SCH (07:18)
[2018-11-19] MEDS: mupirocin 2% nasal ointment 1gm UD NS SCH ×2 (07:18→20:17)
[2018-11-19] MEDS: gabapentin 300mg capsule PO SCH ×3 (07:19→20:21)
[2018-11-19] MEDS: montelukast 10mg tablet PO SCH (07:19)
[2018-11-19] MEDS: FLUoxetine 20mg capsule PO SCH (07:19)
[2018-11-19] MEDS: NORepinephrine 8mg/ 250ml NS 250 ML IV SCH (07:27)
[2018-11-19] MEDS: insulin Lispro (HumaLOG) vial - multi-dose SQ SCH ×3 (07:43→15:50)
[2018-11-19] MEDS: docusate sod 100mg capsule PO SCH ×2 (07:44→20:17)
[2018-11-19] MEDS: metoprolol tartrate 12.5mg (1/2 tablet) PO SCH ×2 (07:44→20:00)
[2018-11-19] MEDS ORDERED: aspirin 325mg tablet, delayed-release (Ecotrin) PO SCH (08:00)
[2018-11-19] MEDS ORDERED: atorvastatin 10mg tablet PO SCH (08:00)
[2018-11-19] MEDS: insulin regular, human 100 UNIT in normal saline 100ml IV soln 100 ML IV SCH ×2 (08:08)
[2018-11-19] MEDS: vancomycin/NS 1 GM ADD-VANTAGE 250 ML IV SCH ×2 (08:09→20:18)
[2018-11-19 09:11] LABS: ABG BASE EXCESS -8.3 mmol/L (-2.0-3.0); ABG HCO3 17.1 mmol/L (22.0-26.0); ABG OXYGEN SATURATION 95.8 % (95-98); ABG PCO2 (T) 34.6 mmHg (35.0-45.0); ABG PH (T) 7.312 (7.350-7.450); ABG PO2 (T) 84.8 mmHg (83-108); FCOHb 0.2 % (0.5-1.5); FMetHb 0.3 % (0.3-1.12); FO2Hb 95.3 % (94-100); MINUTE VOLUME 10 L/min; PEEP 8 cm H2O; RESPIRATORY RATE (OBSERVED) 16 b/min; TIDAL VOLUME 655 mL
--- NOTE | 2018-11-19 10:00 | NUR ---
Patient has great weaning parameters, however his breaths are stacking on the vent, his Bicarb was 17, and his pH was 7.3. Called out to Johnnie LYNN to determine if this was acceptable to still extubate patient.
[2018-11-19] MEDS ORDERED: sodium bicarbonate (8.4%) 1 mEq/ml syringe IV ONE (13:00)
[2018-11-19] MEDS ORDERED: sodium bicarbonate (8.4%) inj. 1 MEQ/ML ML ONE (13:18)
[2018-11-19] MEDS: HYDROcodone/acetaminophen 10/325mg tab PO PRN ×2 (13:31→21:00)
--- NOTE | 2018-11-19 13:41 | NUR ---
1310 Patient extubated to 4LNC. c/o severe pain in front and back 4mg of MS given. 10 min later, still c/o severe pain and desating to 82%. Increased to 6LNC, administered 2 [place] 10s, and once patient was calmed, his pain controlled, recovered saturation up to 90% on 6LNC.
--- NOTE | 2018-11-19 14:12 | NUR ---
Patient states that pain is finally beginning to come under control.
[2018-11-19] MEDS ORDERED: dextrose ORAL solution 15 GM/59 ML bottle PO PRN (21:30)
[2018-11-19] MEDS ORDERED: dextrose 50%-water 50ml dispensing syringe IV PRN ×2 (21:30)
[2018-11-19] MEDS ORDERED: glucagon, human recombinant 1mg kit SUBCUT PRN (21:30)
[2018-11-20] VITALS (26 sets, daily range): BP systolic 58–155; BP diastolic 44–75
[2018-11-20] MEDS: milrinone (Primacor) 20mg/D5W 100 ML IV SCH (01:23)
[2018-11-20 04:00] LABS: ALBUMIN 2.5 G/DL (3.4-5.0); ANION GAP 4 (8-16); BASOPHILS % (AUTO) 0.1 % (0-1); BLOOD UREA NITROGEN 43 MG/DL (7-18); BUN/CREATININE RATIO 33.1 (5.4-32.0); CALCIUM 7.8 MG/DL (8.5-10.1); CHLORIDE 109 MMOL/L (99-107); EOSINOPHILS % (AUTO) 0 % (0-6); GLUCOSE 179 MG/DL (70-104); HEMATOCRIT 23.7 % (42.0-52.0); HEMOGLOBIN 7.7 g/dl (14.0-17.9); LYMPHOCYTES # (AUTO) 1.5 X10'3 (1.1-4.8); LYMPHOCYTES % (AUTO) 9.9 % (21-51); MEAN CORPUSCULAR HEMOGLOBIN 27.9 PG (27.0-31.0); MEAN CORPUSCULAR HGB CONC 32.6 g/dL (33.0-36.5); MEAN CORPUSCULAR VOLUME 85.6 FL (78-98); MEAN PLATELET VOLUME 9.3 FL (7.4-10.4); MONOCYTES # (AUTO) 1.7 X10'3 (0-0.9); MONOCYTES % (AUTO) 11.2 % (2-12); NEUTROPHILS % (AUTO) 78.8 % (42-75); PHOSPHORUS 5.5 MG/DL (2.3-4.5); PLATELET COUNT 83 X10'3 (140-440); POTASSIUM 5.8 MMOL/L (3.5-5.1); RED BLOOD COUNT 2.77 X10'6 (4.70-6.10); RED CELL DISTRIBUTION WIDTH 16.3 % (11.5-14.5); SODIUM 139 MMOL/L (135-145); TOTAL CARBON DIOXIDE 25.8 MMOL/L (24-32); WHITE BLOOD COUNT 15.2 X10'3 (4.5-11.0); eGFR 55 ML/MIN
[2018-11-20] MEDS: NORepinephrine 8mg/ 250ml NS 250 ML IV SCH ×2 (04:09→21:32)
[2018-11-20] MEDS: morphine 4 MG/ML inj SYRINge IV PRN ×2 (04:16→05:37)
[2018-11-20] MEDS: HYDROcodone/acetaminophen 10/325mg tab PO PRN ×4 (04:27→19:26)
--- NOTE | 2018-11-20 06:14 | NUR ---
complained of pain at all times . wants his morphine every hour , BP requires pressors specially when awake and in pain
--- NOTE | 2018-11-20 06:30 | NUR ---
Patient in room ICU 2041. I have received report from GIOVANNA Nails and had the opportunity to ask questions and assume patient care.
[2018-11-20 07:20] LABS: ANISOCYTOSIS 1+; PLATELET ESTIMATE DECREASED; TOTAL CELLS COUNTED 100
[2018-11-20] MEDS ORDERED: furosemide 40mg/4ml inj IV ONE (07:20)
[2018-11-20 07:21] LABS: BURR CELLS FEW
[2018-11-20 07:35] LABS: HYPOCHROMASIA 1+
[2018-11-20] MEDS: gabapentin 300mg capsule PO SCH (08:36)
[2018-11-20] MEDS: FLUoxetine 20mg capsule PO SCH (08:36)
[2018-11-20] MEDS: montelukast 10mg tablet PO SCH (08:36)
[2018-11-20] MEDS: docusate sod 100mg capsule PO SCH ×2 (08:37→19:25)
[2018-11-20] MEDS: pantoprazole 40mg Tablet.DR PO SCH (08:38)
[2018-11-20] MEDS: mupirocin 2% nasal ointment 1gm UD NS SCH (08:52)
[2018-11-20] MEDS: atorvastatin 10mg tablet PO SCH (08:52)
[2018-11-20] MEDS: metoprolol tartrate 12.5mg (1/2 tablet) PO SCH (09:24)
--- NOTE | 2018-11-20 09:32 | NUR ---
CABG Consult: Pt s/p CABGx4 POD#2 per MD note. LBM 11/16. PO 25% avg NCS diet; Glucerna TIDWM added for additional protein needs post-op; pending MD verification prior to sending on trays. Will need HH/CABG diet ed once stable post-op prior to d/c. Will continue to monitor. Rec: 1. advance diet per MD to carb controlled/heart healthy post-op 2. Glucerna TIDWM; pending MD verification prior to sending on trays 3. routine bowel care 4. wt per rx Addendum: 11/20/18 at [address] Amended: Links added. Addendum: 11/20/18 at [address] CABG Consult: Pt s/p CABGx4 POD#2 per note. LBM 11/16. PO 25% avg NCS diet; Glucerna TIDWM added for additional protein needs post-op; pending MD verification prior to sending on trays. Will need HH/CABG diet ed once stable post-op prior to d/c. Will continue to monitor. Rec: 1. advance diet per MD to carb controlled/heart healthy post-op 2. Glucerna TIDWM; pending MD verification prior to sending on trays 3. routine bowel care 4. CABG/HH diet eds once stable prior to d/c 5. wt per rx
[2018-11-20] MEDS: insulin Lispro (HumaLOG) vial - multi-dose SQ SCH ×3 (10:56→20:07)
[2018-11-20] MEDS: sodium chloride 0.45% 1,000 ML IV SCH (13:24)
--- NOTE | 2018-11-20 14:00 | NUR ---
Per Kenn HEREDIA, Alexandrea report, Dr. Rincon states potassium of 5.8 is not to be corrected.
--- NOTE | 2018-11-20 14:36 | NUR ---
VSS stable at this time. Pt on Levophed at 8mcg with MAP >60. c/o chest pain s/p surgery. [place] 10/325 two tabs given x2 with some pain resolve. Oxy IR ordered per Dr. Rincon for breakthrough pain between the [place]. MD requested to try and manage pts pain with pills vs. IV if possible. s/p 1 unit of PRBC's this AM for hgb 7.7. Pt tolerated well. Pending follow-up H&H. Post- blood transfusion dose of Lasix given with minimal output. [place] removed per MD, pt tolerated well. Started progressive mobility with bed in chair position and pt moving around in bed. Pt very sleepy. Significant other states it's normal for him to not sleep at night and sleep until the afternoon the next day. Pt has wet productive cough and sounds course to auscultation. Pt encouraged to use his IS and flutter often. asked pts significant other, who is at bedside, to help encourage pt to do them. Pt is eating well. Report given to GIOVANNA Helms for continuation of pt care.
[2018-11-20] MEDS: NUT.TX.GLUC.INTOLER,LAC-FR,SOY (GLUCERNA) 237 ML PO SCH ×2 (15:34→20:08)
[2018-11-20 16:49] LABS: BASOPHILS % (AUTO) 0.3 % (0-1); EOSINOPHILS % (AUTO) 0.1 % (0-6); HEMATOCRIT 28.4 % (42.0-52.0); HEMOGLOBIN 9.2 g/dl (14.0-17.9); LYMPHOCYTES % (AUTO) 16.1 % (21-51); MEAN CORPUSCULAR HEMOGLOBIN 27.6 PG (27.0-31.0); MEAN CORPUSCULAR HGB CONC 32.4 g/dL (33.0-36.5); MEAN CORPUSCULAR VOLUME 85.2 FL (78-98); MEAN PLATELET VOLUME 9.2 FL (7.4-10.4); MONOCYTES # (AUTO) 1.4 X10'3 (0-0.9); MONOCYTES % (AUTO) 11.4 % (2-12); NEUTROPHILS # (AUTO) 9.1 X10'3 (1.8-7.7); NEUTROPHILS % (AUTO) 72.1 % (42-75); PLATELET COUNT 87 X10'3 (140-440); RED BLOOD COUNT 3.34 X10'6 (4.70-6.10); RED CELL DISTRIBUTION WIDTH 16.2 % (11.5-14.5); WHITE BLOOD COUNT 12.6 X10'3 (4.5-11.0)
[2018-11-20 17:04] LABS: ALANINE AMINOTRANSFERASE 19 U/L (12-78); ALBUMIN 2.9 G/DL (3.4-5.0); ALBUMIN/GLOBULIN RATIO 0.9 (1.1-1.5); ALKALINE PHOSPHATASE 50 IU/L (46-116); ANION GAP 8 (8-16); ASPARTATE AMINO TRANSFERASE 34 U/L (10-37); BILIRUBIN,TOTAL 0.5 MG/DL (0.1-1.0); BLOOD UREA NITROGEN 52 MG/DL (7-18); BUN/CREATININE RATIO 27.1 (5.4-32.0); CALCIUM 7.8 MG/DL (8.5-10.1); CHLORIDE 108 MMOL/L (99-107); CREATININE 1.92 MG/DL (0.60-1.10); GLUCOSE 137 MG/DL (70-104); POTASSIUM 5.4 MMOL/L (3.5-5.1); SODIUM 140 MMOL/L (135-145); TOTAL CARBON DIOXIDE 23.6 MMOL/L (24-32); TOTAL PROTEIN 6.1 G/DL (6.4-8.2); eGFR 35 ML/MIN
--- NOTE | 2018-11-20 18:37 | NUR ---
Patient in room ICU 2041. I have received report from GIOVANNA Griffith and had the opportunity to ask questions and assume patient care.
--- NOTE | 2018-11-20 19:04 | NUR ---
Pt.'s arterial line was reading 70s to 90s systolic. Dr. Rincon was asked whether or not to go by the arterial line or discontinue it because it was reading SBPs in the 60s-70s, not correlating with the non invasive cuff pressure. Per Dr. Rincon I am to follow and leave in the arterial line. Levophed was titrated up to 16 mcg per arterial line reading. Dr. Rincon contacted per change in mental status and fall in arterial blood pressure to systolic B/P of 70s from both a-line and NIBP cuff.
[2018-11-20 19:31] LABS: ABG BASE EXCESS -4.4 mmol/L (-2.0-3.0); ABG HCO3 22.4 mmol/L (22.0-26.0); ABG OXYGEN SATURATION 90.7 % (95-98); ABG PCO2 (T) 50.2 mmHg (35.0-45.0); ABG PO2 (T) 64.4 mmHg (83-108); FCOHb 0.3 % (0.5-1.5); FLOW 4 L/min; FMetHb 0.2 % (0.3-1.12); FO2Hb 90.2 % (94-100); PATIENT TEMPERATURE 37.5; TOTAL HEMOGLOBIN 9.9 G/dl (14.0-17.9)
[2018-11-20 20:41] LABS: ABG BASE EXCESS -5.7 mmol/L (-2.0-3.0); ABG HCO3 20.9 mmol/L (22.0-26.0); ABG OXYGEN SATURATION 93.1 % (95-98); ABG PCO2 (T) 47.5 mmHg (35.0-45.0); ABG PH (T) 7.265 (7.350-7.450); ABG PO2 (T) 76.7 mmHg (83-108); FCOHb 0.7 % (0.5-1.5); FLOW 4 L/min; FMetHb 0.1 % (0.3-1.12); FO2Hb 92.4 % (94-100); PATIENT TEMPERATURE 37.6; RESPIRATORY RATE (OBSERVED) 20 b/min; TOTAL HEMOGLOBIN 9.9 G/dl (14.0-17.9)
--- NOTE | 2018-11-20 21:09 | NUR ---
Spoke to Dr. Rincon regarding pts condition, current ABG results, low urine out put, chest xray and amount of vasoactive medication, Levophed infusing. new orders to start dopamine at 3mcg/kg/min with a cap of 5mcg/kg/min. try to titrate Levophed down once the dopamine is started.
[2018-11-20] MEDS: DOPamine 400mg/D5W 250ml 250 ML IV SCH (21:18)
[2018-11-20] MEDS: insulin glargine (Lantus) pen - multi-dose SQ SCH (21:28)
[2018-11-21] VITALS (23 sets, daily range): BP systolic 85–142; BP diastolic 32–81
[2018-11-21] MEDS: HYDROcodone/acetaminophen 10/325mg tab PO PRN ×4 (01:18→19:05)
[2018-11-21 03:46] LABS: BASOPHILS % (AUTO) 0.1 % (0-1); EOSINOPHILS % (AUTO) 0.4 % (0-6); HEMATOCRIT 27.5 % (42.0-52.0); LYMPHOCYTES # (AUTO) 1.8 X10'3 (1.1-4.8); LYMPHOCYTES % (AUTO) 18.3 % (21-51); MEAN CORPUSCULAR HEMOGLOBIN 28.2 PG (27.0-31.0); MEAN CORPUSCULAR HGB CONC 32.9 g/dL (33.0-36.5); MEAN CORPUSCULAR VOLUME 85.8 FL (78-98); MEAN PLATELET VOLUME 9.1 FL (7.4-10.4); MONOCYTES # (AUTO) 1.4 X10'3 (0-0.9); MONOCYTES % (AUTO) 14.8 % (2-12); NEUTROPHILS # (AUTO) 6.4 X10'3 (1.8-7.7); NEUTROPHILS % (AUTO) 66.4 % (42-75); PLATELET COUNT 85 X10'3 (140-440); RED CELL DISTRIBUTION WIDTH 16.4 % (11.5-14.5); WHITE BLOOD COUNT 9.7 X10'3 (4.5-11.0)
[2018-11-21 04:02] LABS: ALBUMIN 2.7 G/DL (3.4-5.0); ANION GAP 5 (8-16); BLOOD UREA NITROGEN 53 MG/DL (7-18); BUN/CREATININE RATIO 39.6 (5.4-32.0); CALCIUM 7.5 MG/DL (8.5-10.1); CHLORIDE 111 MMOL/L (99-107); CREATININE 1.34 MG/DL (0.60-1.10); GLUCOSE 67 MG/DL (70-104); MAGNESIUM 2.1 MG/DL (1.5-2.4); PHOSPHORUS 4.8 MG/DL (2.3-4.5); POTASSIUM 4.9 MMOL/L (3.5-5.1); SODIUM 142 MMOL/L (135-145); eGFR 53 ML/MIN
--- NOTE | 2018-11-21 06:49 | NUR ---
Problems reprioritized. Patient report given, questions answered & plan of care reviewed with GIOVANNA Silva.
--- NOTE | 2018-11-21 06:49 | NUR ---
Patient in room ICU 2041. I have received report from GIOVANNA Allen and had the opportunity to ask questions and assume patient care.
[2018-11-21] MEDS: pantoprazole 40mg Tablet.DR PO SCH (07:21)
[2018-11-21] MEDS: dextrose ORAL solution 15 GM/59 ML bottle PO PRN (07:31)
[2018-11-21] MEDS: aspirin 81mg tablet.DR PO SCH (07:57)
[2018-11-21] MEDS: montelukast 10mg tablet PO SCH (07:57)
[2018-11-21] MEDS: FLUoxetine 20mg capsule PO SCH (07:57)
[2018-11-21] MEDS: atorvastatin 10mg tablet PO SCH (07:58)
[2018-11-21] MEDS: docusate sod 100mg capsule PO SCH ×2 (07:58→19:04)
--- NOTE | 2018-11-21 08:15 | NUR ---
Pt received his breakfast and refused another blood sugar check. Original blood sugar 43, given 2 glucose juice shots; second glucose 67, pt received 1 glucose shot drink, and refused the second . Will recheck after breakfast per pt request.
[2018-11-21] MEDS: NUT.TX.GLUC.INTOLER,LAC-FR,SOY (GLUCERNA) 237 ML PO SCH ×3 (08:51→18:00)
[2018-11-21] MEDS ORDERED: acetaminophen 120MG suppository, rectal RC PRN (16:55)
--- NOTE | 2018-11-21 18:45 | NUR ---
Problems reprioritized. Patient report given, questions answered & plan of care reviewed with GIOVANNA Allen.
[2018-11-21] MEDS: insulin Lispro (HumaLOG) vial - multi-dose SQ SCH (21:15)
[2018-11-21] MEDS: insulin glargine (Lantus) pen - multi-dose SQ SCH (21:16)
[2018-11-21] MEDS: DOPamine 400mg/D5W 250ml 250 ML IV SCH (23:01)
[2018-11-22] VITALS (25 sets, daily range): BP systolic 80–127; BP diastolic 44–62
[2018-11-22 02:57] LABS: ALBUMIN 2.4 G/DL (3.4-5.0); ANION GAP 4 (8-16); BLOOD UREA NITROGEN 35 MG/DL (7-18); BUN/CREATININE RATIO 41.2 (5.4-32.0); CALCIUM 7.5 MG/DL (8.5-10.1); CHLORIDE 109 MMOL/L (99-107); CREATININE 0.85 MG/DL (0.60-1.10); GLUCOSE 244 MG/DL (70-104); PHOSPHORUS 2.5 MG/DL (2.3-4.5); POTASSIUM 4.9 MMOL/L (3.5-5.1); SODIUM 141 MMOL/L (135-145); TOTAL CARBON DIOXIDE 28.4 MMOL/L (24-32); eGFR 90 ML/MIN
[2018-11-22 03:14] LABS: BASOPHILS % (AUTO) 0.2 % (0-1); EOSINOPHILS # (AUTO) 0.2 X10'3 (0-0.9); EOSINOPHILS % (AUTO) 2.8 % (0-6); HEMATOCRIT 25.7 % (42.0-52.0); HEMOGLOBIN 8.7 g/dl (14.0-17.9); LYMPHOCYTES # (AUTO) 0.9 X10'3 (1.1-4.8); LYMPHOCYTES % (AUTO) 12.6 % (21-51); MEAN CORPUSCULAR HEMOGLOBIN 28.8 PG (27.0-31.0); MEAN CORPUSCULAR HGB CONC 33.6 g/dL (33.0-36.5); MEAN CORPUSCULAR VOLUME 85.5 FL (78-98); MEAN PLATELET VOLUME 9.2 FL (7.4-10.4); MONOCYTES # (AUTO) 0.9 X10'3 (0-0.9); MONOCYTES % (AUTO) 12.6 % (2-12); NEUTROPHILS # (AUTO) 4.9 X10'3 (1.8-7.7); NEUTROPHILS % (AUTO) 71.8 % (42-75); PLATELET COUNT 91 X10'3 (140-440); RED BLOOD COUNT 3.01 X10'6 (4.70-6.10); RED CELL DISTRIBUTION WIDTH 16.1 % (11.5-14.5); WHITE BLOOD COUNT 6.8 X10'3 (4.5-11.0)
--- NOTE | 2018-11-22 06:30 | NUR ---
Patient in room ICU 2041. I have received report from FAVIOLA HEREDIA and had the opportunity to ask questions and assume patient care.
--- NOTE | 2018-11-22 06:49 | NUR ---
Problems reprioritized. Patient report given, questions answered & plan of care reviewed with GIOVANNA Ca.
--- NOTE | 2018-11-22 07:00 | NUR ---
Mckenzie at bedside, ordered to stop Levophed. Will cont. to monitor.
[2018-11-22] MEDS ORDERED: magnesium citrate 296ml oral solution PO ONE (07:15)
[2018-11-22] MEDS: docusate sod 100mg capsule PO SCH ×2 (07:55→20:49)
[2018-11-22] MEDS: montelukast 10mg tablet PO SCH (07:55)
[2018-11-22] MEDS: atorvastatin 10mg tablet PO SCH (07:55)
[2018-11-22] MEDS: FLUoxetine 20mg capsule PO SCH (07:55)
[2018-11-22] MEDS: aspirin 81mg tablet.DR PO SCH (07:55)
[2018-11-22] MEDS: pantoprazole 40mg Tablet.DR PO SCH (07:55)
[2018-11-22] MEDS: HYDROcodone/acetaminophen 10/325mg tab PO PRN ×3 (07:56→18:21)
[2018-11-22] MEDS: NUT.TX.GLUC.INTOLER,LAC-FR,SOY (GLUCERNA) 237 ML PO SCH ×3 (08:19→18:21)
[2018-11-22] MEDS: sodium chloride 0.45% 1,000 ML IV SCH ×2 (12:47→19:26)
[2018-11-22] MEDS: gabapentin 100mg capsule PO SCH ×2 (13:46→20:49)
[2018-11-22] MEDS: oxyCODONE IR 5mg (immed. release) tablet PO PRN (13:46)
[2018-11-22] MEDS: insulin Lispro (HumaLOG) vial - multi-dose SQ SCH ×2 (13:57→19:56)
[2018-11-22] MEDS: DOPamine 400mg/D5W 250ml 250 ML IV SCH (15:16)
[2018-11-22] MEDS: albuterol 2.5 MG/3 ML nebule NEB SCH ×2 (16:24→20:15)
--- NOTE | 2018-11-22 17:30 | NUR ---
Patient admitted that Ruthven does help his pain. Patient had been stating Ruthven had not helped his 10/10 pain all day today. Provided education for patient and to report truthful information so nurse can pass it on to provider.
--- NOTE | 2018-11-22 18:25 | NUR ---
Problems reprioritized. Patient report given, questions answered & plan of care reviewed with Edmund RN.
--- NOTE | 2018-11-22 18:30 | NUR ---
Patient in room ICU 2041. I have received report from Lanny Minor RN and had the opportunity to ask questions and assume patient care.
[2018-11-22] MEDS: ondansetron/PF 4mg/2ml inj IV PRN (19:11)
[2018-11-22] MEDS: insulin glargine (Lantus) pen - multi-dose SQ SCH (22:49)
[2018-11-23] VITALS (26 sets, daily range): BP systolic 67–120; BP diastolic 34–58
[2018-11-23] MEDS: albuterol 2.5 MG/3 ML nebule NEB SCH ×4 (02:16→20:16)
[2018-11-23 04:09] LABS: MAGNESIUM 2.7 MG/DL (1.5-2.4); PHOSPHORUS 2.5 MG/DL (2.3-4.5); POTASSIUM 4.7 MMOL/L (3.5-5.1)
--- NOTE | 2018-11-23 06:15 | NUR ---
Patient in room ICU 2041. I have received report from fast food shift lead RN and had the opportunity to ask questions and assume patient care.
--- NOTE | 2018-11-23 06:39 | NUR ---
Problems reprioritized. Patient report given, questions answered & plan of care reviewed with Nevaeh Mcdowell RN.
[2018-11-23] MEDS: NORepinephrine 8mg/ 250ml NS 250 ML IV SCH (07:05)
--- NOTE | 2018-11-23 07:15 | NUR ---
Alverto okayed for labs to be drawn
[2018-11-23 07:34] LABS: BASOPHILS % (AUTO) 0.2 % (0-1); EOSINOPHILS # (AUTO) 0.4 X10'3 (0-0.9); EOSINOPHILS % (AUTO) 3.9 % (0-6); HEMATOCRIT 24.6 % (42.0-52.0); HEMOGLOBIN 8.1 g/dl (14.0-17.9); LYMPHOCYTES # (AUTO) 1.4 X10'3 (1.1-4.8); LYMPHOCYTES % (AUTO) 14.3 % (21-51); MEAN CORPUSCULAR HEMOGLOBIN 28.2 PG (27.0-31.0); MEAN CORPUSCULAR VOLUME 85.4 FL (78-98); MEAN PLATELET VOLUME 8.8 FL (7.4-10.4); MONOCYTES # (AUTO) 1.2 X10'3 (0-0.9); MONOCYTES % (AUTO) 12.8 % (2-12); NEUTROPHILS # (AUTO) 6.6 X10'3 (1.8-7.7); NEUTROPHILS % (AUTO) 68.8 % (42-75); PLATELET COUNT 141 X10'3 (140-440); RED BLOOD COUNT 2.88 X10'6 (4.70-6.10); RED CELL DISTRIBUTION WIDTH 15.7 % (11.5-14.5); WHITE BLOOD COUNT 9.6 X10'3 (4.5-11.0)
[2018-11-23 07:49] LABS: ALANINE AMINOTRANSFERASE 12 U/L (12-78); ALBUMIN 2.2 G/DL (3.4-5.0); ALBUMIN/GLOBULIN RATIO 0.7 (1.1-1.5); ALKALINE PHOSPHATASE 53 IU/L (46-116); ANION GAP 1 (8-16); ASPARTATE AMINO TRANSFERASE 18 U/L (10-37); BILIRUBIN,TOTAL 0.6 MG/DL (0.1-1.0); BLOOD UREA NITROGEN 24 MG/DL (7-18); BUN/CREATININE RATIO 32.9 (5.4-32.0); CALCIUM 7.2 MG/DL (8.5-10.1); CHLORIDE 108 MMOL/L (99-107); CREATININE 0.73 MG/DL (0.60-1.10); GLUCOSE 129 MG/DL (70-104); POTASSIUM 4.7 MMOL/L (3.5-5.1); SODIUM 139 MMOL/L (135-145); TOTAL CARBON DIOXIDE 30.1 MMOL/L (24-32); TOTAL PROTEIN 5.4 G/DL (6.4-8.2); eGFR > 90 ML/MIN
[2018-11-23] MEDS: aspirin 81mg tablet.DR PO SCH (07:52)
[2018-11-23] MEDS: pantoprazole 40mg Tablet.DR PO SCH (07:52)
[2018-11-23] MEDS: atorvastatin 10mg tablet PO SCH (07:52)
[2018-11-23] MEDS: docusate sod 100mg capsule PO SCH ×2 (07:52→20:10)
[2018-11-23] MEDS: FLUoxetine 20mg capsule PO SCH (07:52)
[2018-11-23] MEDS: montelukast 10mg tablet PO SCH (07:52)
[2018-11-23] MEDS: HYDROcodone/acetaminophen 10/325mg tab PO PRN ×4 (07:53→21:58)
[2018-11-23] MEDS: gabapentin 100mg capsule PO SCH ×3 (07:53→20:10)
[2018-11-23] MEDS: NUT.TX.GLUC.INTOLER,LAC-FR,SOY (GLUCERNA) 237 ML PO SCH ×3 (08:20→17:19)
[2018-11-23] MEDS: ondansetron/PF 4mg/2ml inj IV PRN ×2 (08:20→18:48)
[2018-11-23] MEDS ORDERED: normal saline 1000ml 1,000 ML IV ONE (09:00)
--- NOTE | 2018-11-23 09:00 | NUR ---
md aware of pts pain and inability to control pain very well pts states everything is painful and has an extremely low pain threshold
[2018-11-23] MEDS: oxyCODONE IR 5mg (immed. release) tablet PO PRN ×4 (09:31→19:31)
[2018-11-23] MEDS: morphine 4 MG/ML inj SYRINge IV PRN (12:13)
[2018-11-23] MEDS: DOPamine 400mg/D5W 250ml 250 ML IV SCH (12:17)
--- NOTE | 2018-11-23 12:26 | NUR ---
F/u: Pt/family seen by RD for written/verbal CABG/HH diet eds w/ RD contact information provided. Family reports pt picky eater and has specific food preferences that do not align w/ current diet order. Surgeon has OK'd some liberalization to food brought in from outside given pt low PO hx 0-25% avg meals fluctuating past 8 days. Family is going to try bringing in premier protein from outside. Pt was agreeable to ham/eggs/pancakes w/ breakfasts, turkey/mashed potatoes w/ gravy BIDLD; dietary notified. Pt also reports disliking Glucernas and agreeable to try chocolate ensure high proteins; dietary notified. Pt/family were also provided w/ alternative menu write-in list in order to provide more options. LBM 11/22 on colace. Will continue to monitor for PO hx and additional protein needs post-op. Rec: 1. advance diet per MD to carb controlled/heart healthy post-op 2. chocolate ensure high protein TIDWM 3. routine bowel care 4. premier protein from home; honor pt food preferences; see above 5. weekly wts Addendum: 11/23/18 at [address] Amended: Links added.
--- NOTE | 2018-11-23 13:00 | NUR ---
MD Montaño will start Midodrine because of unsuccessful attempts to wean Dopamine
[2018-11-23] MEDS: insulin Lispro (HumaLOG) vial - multi-dose SQ SCH ×2 (13:39→20:14)
[2018-11-23] MEDS: midodrine tablet 2.5 MG TABLET PO SCH ×2 (13:43→15:43)
--- NOTE | 2018-11-23 18:30 | NUR ---
Patient in room ICU 2041. I have received report from Nevaeh Mcdowell RN and had the opportunity to ask questions and assume patient care.
[2018-11-23] MEDS: sodium chloride 0.45% 1,000 ML IV SCH (20:11)
[2018-11-23] MEDS: insulin glargine (Lantus) pen - multi-dose SQ SCH (23:27)
[2018-11-24] VITALS (27 sets, daily range): BP systolic 83–135; BP diastolic 37–62
[2018-11-24] MEDS: oxyCODONE IR 5mg (immed. release) tablet PO PRN ×3 (00:34→23:40)
[2018-11-24] MEDS: midodrine tablet 2.5 MG TABLET PO SCH ×3 (00:38→16:25)
[2018-11-24] MEDS: albuterol 2.5 MG/3 ML nebule NEB SCH ×4 (02:16→20:09)
[2018-11-24 03:46] LABS: BASOPHILS # (AUTO) 0.1 X10'3 (0-0.2); BASOPHILS % (AUTO) 0.6 % (0-1); EOSINOPHILS # (AUTO) 0.3 X10'3 (0-0.9); EOSINOPHILS % (AUTO) 3.6 % (0-6); HEMATOCRIT 22.6 % (42.0-52.0); HEMOGLOBIN 7.4 g/dl (14.0-17.9); LYMPHOCYTES # (AUTO) 1.9 X10'3 (1.1-4.8); LYMPHOCYTES % (AUTO) 20.3 % (21-51); MEAN CORPUSCULAR HEMOGLOBIN 28.4 PG (27.0-31.0); MEAN CORPUSCULAR HGB CONC 32.6 g/dL (33.0-36.5); MEAN CORPUSCULAR VOLUME 87.1 FL (78-98); MONOCYTES # (AUTO) 1.2 X10'3 (0-0.9); MONOCYTES % (AUTO) 12.6 % (2-12); NEUTROPHILS % (AUTO) 62.9 % (42-75); PLATELET COUNT 173 X10'3 (140-440); RED CELL DISTRIBUTION WIDTH 15.7 % (11.5-14.5); WHITE BLOOD COUNT 9.5 X10'3 (4.5-11.0)
[2018-11-24 04:02] LABS: ALANINE AMINOTRANSFERASE 14 U/L (12-78); ALBUMIN 2.2 G/DL (3.4-5.0); ALBUMIN/GLOBULIN RATIO 0.7 (1.1-1.5); ALKALINE PHOSPHATASE 55 IU/L (46-116); ANION GAP 2 (8-16); ASPARTATE AMINO TRANSFERASE 21 U/L (10-37); BILIRUBIN,TOTAL 0.6 MG/DL (0.1-1.0); BLOOD UREA NITROGEN 22 MG/DL (7-18); BUN/CREATININE RATIO 24.7 (5.4-32.0); CALCIUM 7.3 MG/DL (8.5-10.1); CHLORIDE 111 MMOL/L (99-107); CREATININE 0.89 MG/DL (0.60-1.10); MAGNESIUM 2.4 MG/DL (1.5-2.4); PHOSPHORUS 2.3 MG/DL (2.3-4.5); POTASSIUM 4.6 MMOL/L (3.5-5.1); SODIUM 143 MMOL/L (135-145); TOTAL CARBON DIOXIDE 29.8 MMOL/L (24-32); TOTAL PROTEIN 5.4 G/DL (6.4-8.2); eGFR 85 ML/MIN
[2018-11-24 04:05] LABS: GLUCOSE 45 MG/DL (70-104)
[2018-11-24] MEDS: HYDROcodone/acetaminophen 10/325mg tab PO PRN ×4 (04:51→20:21)
[2018-11-24] MEDS: atorvastatin 10mg tablet PO SCH (08:04)
[2018-11-24] MEDS: FLUoxetine 20mg capsule PO SCH (08:04)
[2018-11-24] MEDS: pantoprazole 40mg Tablet.DR PO SCH (08:05)
[2018-11-24] MEDS: aspirin 81mg tablet.DR PO SCH (08:05)
[2018-11-24] MEDS: montelukast 10mg tablet PO SCH (08:05)
[2018-11-24] MEDS: gabapentin 100mg capsule PO SCH ×3 (08:05→20:01)
[2018-11-24] MEDS: docusate sod 100mg capsule PO SCH ×2 (08:06→20:01)
[2018-11-24] MEDS: NUT.TX.GLUC.INTOLER,LAC-FR,SOY (GLUCERNA) 237 ML PO SCH ×3 (08:35→18:00)
[2018-11-24] MEDS ORDERED: furosemide 20MG tablet PO ONE (08:40)
--- NOTE | 2018-11-24 09:00 | NUR ---
AT O900 DR. MCKEON INTO SEE PATIENT, APPRISED OF PATIENT'S HGB 7.4; ORDERS GIVEN AND NOTED. DOPAMINE GTT TURNED OFF PER ORDER. Addendum: 11/24/18 at 1853 by Kristine Srinivasan RN Amended: Links added.
--- NOTE | 2018-11-24 18:46 | NUR ---
Patient in room ICU 2041. I have received report from Rusty Teran, and had the opportunity to ask questions and assume patient care
[2018-11-24] MEDS: insulin glargine (Lantus) pen - multi-dose SQ SCH (20:13)
[2018-11-25] VITALS (24 sets, daily range): BP systolic 100–135; BP diastolic 55–79
[2018-11-25] MEDS: midodrine tablet 2.5 MG TABLET PO SCH ×3 (01:33→15:15)
[2018-11-25] MEDS: albuterol 2.5 MG/3 ML nebule NEB SCH ×4 (02:11→20:56)
[2018-11-25 04:43] LABS: BASOPHILS # (AUTO) 0.1 X10'3 (0-0.2); BASOPHILS % (AUTO) 0.6 % (0-1); EOSINOPHILS # (AUTO) 0.4 X10'3 (0-0.9); EOSINOPHILS % (AUTO) 4.9 % (0-6); HEMATOCRIT 25.8 % (42.0-52.0); HEMOGLOBIN 8.7 g/dl (14.0-17.9); LYMPHOCYTES # (AUTO) 1.8 X10'3 (1.1-4.8); LYMPHOCYTES % (AUTO) 20.1 % (21-51); MEAN CORPUSCULAR HEMOGLOBIN 28.9 PG (27.0-31.0); MEAN CORPUSCULAR HGB CONC 33.7 g/dL (33.0-36.5); MEAN CORPUSCULAR VOLUME 85.8 FL (78-98); MEAN PLATELET VOLUME 8.5 FL (7.4-10.4); MONOCYTES # (AUTO) 1.2 X10'3 (0-0.9); MONOCYTES % (AUTO) 12.8 % (2-12); NEUTROPHILS # (AUTO) 5.6 X10'3 (1.8-7.7); NEUTROPHILS % (AUTO) 61.6 % (42-75); PLATELET COUNT 230 X10'3 (140-440); RED BLOOD COUNT 3.01 X10'6 (4.70-6.10); RED CELL DISTRIBUTION WIDTH 15.9 % (11.5-14.5)
[2018-11-25 04:51] LABS: ALBUMIN 2.3 G/DL (3.4-5.0); ANION GAP 3 (8-16); BLOOD UREA NITROGEN 23 MG/DL (7-18); BUN/CREATININE RATIO 23.7 (5.4-32.0); CALCIUM 7.2 MG/DL (8.5-10.1); CHLORIDE 107 MMOL/L (99-107); CREATININE 0.97 MG/DL (0.60-1.10); GLUCOSE 174 MG/DL (70-104); PHOSPHORUS 2.5 MG/DL (2.3-4.5); POTASSIUM 4.8 MMOL/L (3.5-5.1); SODIUM 140 MMOL/L (135-145); TOTAL CARBON DIOXIDE 30.3 MMOL/L (24-32); eGFR 77 ML/MIN
--- NOTE | 2018-11-25 06:30 | NUR ---
Patient in room ICU 2041. I have received report from GIOVANNA Gross and had the opportunity to ask questions and assume patient care. Patient is currently resting in bed, bed locked and low, call light in reach, VSS, no acute distress, will continue to monitor.
--- NOTE | 2018-11-25 06:38 | NUR ---
Problems reprioritized. Patient report given, questions answered & plan of care reviewed with Carole HEREDIA.
[2018-11-25] MEDS: pantoprazole 40mg Tablet.DR PO SCH (07:03)
[2018-11-25] MEDS: HYDROcodone/acetaminophen 10/325mg tab PO PRN ×4 (07:04→21:46)
[2018-11-25] MEDS: NUT.TX.GLUC.INTOLER,LAC-FR,SOY (GLUCERNA) 237 ML PO SCH ×2 (08:00→13:00)
[2018-11-25] MEDS: aspirin 81mg tablet.DR PO SCH (08:23)
[2018-11-25] MEDS: montelukast 10mg tablet PO SCH (08:24)
[2018-11-25] MEDS: atorvastatin 10mg tablet PO SCH (08:24)
[2018-11-25] MEDS: oxyCODONE IR 5mg (immed. release) tablet PO PRN ×2 (08:25→15:15)
[2018-11-25] MEDS: gabapentin 100mg capsule PO SCH ×3 (08:25→21:09)
[2018-11-25] MEDS: FLUoxetine 20mg capsule PO SCH (08:25)
[2018-11-25] MEDS: docusate sod 100mg capsule PO SCH ×2 (08:25→20:47)
[2018-11-25] MEDS: thiamine 100mg tablet PO SCH (11:36)
[2018-11-25] MEDS: folic acid 1mg tablet PO SCH (11:36)
[2018-11-25] MEDS: multivitamins, therapeutics tablet PO SCH (11:36)
--- NOTE | 2018-11-25 16:16 | NUR ---
chatterjee catheter removed as it had been put in to DC day 2 post op and it is day 7. Attempted to contact LEAH Castillo to confirm but it went to voicemail. Discussed with CRN and patient, patient wanted it out and stated he has no hx of neurogenic bladder or difficulty with urination.
--- NOTE | 2018-11-25 18:22 | NUR ---
Patient in room ICU 2041. I have received report and had the opportunity to ask questions and assume patient care. Patient is resting quietly in bed watching TV. On oxygen at 4L with oxygen saturation 95% Rhythm is sinus. Dressings noted to right neck & midsternal areas. Left leg incision is open to air & bruising is noted with swelling to left lower extremity. No distress. Pt refused dinner tray states his sister will bring him food.No distress.
--- NOTE | 2018-11-25 18:22 | NUR ---
Problems reprioritized. Patient report given, questions answered & plan of care reviewed with GIOVANNA Shannon. Patient stable at shift change
--- NOTE | 2018-11-25 19:15 | NUR ---
Pt is eating food brought in by his sister refusing dinner tray served. Pt ate cheeseburger zimbabwean fries and chocolate shake. Patients sister states the physician told her he can have whatever he wants. Appetite is great.
--- NOTE | 2018-11-25 19:30 | NUR ---
Pt assisted up to BSC for BM. Tolerated activity well, pt then assisted to chair.
--- NOTE | 2018-11-25 20:00 | NUR ---
Pt impulsive, sits up without using sternal precautions, takes off oxygen and will desaturate to 78 %. Pt instructed to keep oxygen on to maintain adequate gas exchange & to use pillow to splint chest incision with all activity. Pt is very independent and does not comply with instructions despite education regarding tissue healing, cardiac supply & demand, Carb controlled diet, safety precautions or utilizing call light for assistance or requests.
--- NOTE | 2018-11-25 21:00 | NUR ---
CHG bath rendered, Pt unable to assist with activity. Gown & bed linen changed.
[2018-11-25] MEDS: insulin glargine (Lantus) pen - multi-dose SQ SCH (21:03)
--- NOTE | 2018-11-25 21:50 | NUR ---
Bladder scan done 265 ml urine noted. Pt encouraged to use urinal.
--- NOTE | 2018-11-25 23:00 | NUR ---
Pt sat up at edge of bed removed oxygen and attempting to get out of bed without assistance to use commode. Oxygen replaced & pt assisted up to BSC. Pt again educated regarding importance of calling for assistance, splinting chest incision and keeping oxygen on. Pt then removed pulse oximeter probe. O2 probe replaced & pt educated regarding importance of maintaining adequate gas exchange.
[2018-11-26] VITALS (18 sets, daily range): BP systolic 88–135; BP diastolic 43–70
--- NOTE | 2018-11-26 00:30 | NUR ---
Voided 250 ml. Passed small formed brown stool.
[2018-11-26] MEDS: midodrine tablet 2.5 MG TABLET PO SCH ×3 (01:08→16:24)
[2018-11-26] MEDS ORDERED: insulin Lispro (HumaLOG) vial - multi-dose SQ ONE (01:30)
[2018-11-26] MEDS: albuterol 2.5 MG/3 ML nebule NEB SCH ×4 (02:10→20:00)
--- NOTE | 2018-11-26 06:00 | NUR ---
Patient in room ICU 2041. I have received report from GIOVANNA Shannon and had the opportunity to ask questions and assume patient care. Addendum: 11/26/18 at 0641 by Yris Delgado RN Amended: Links added.
--- NOTE | 2018-11-26 06:38 | NUR ---
Problems reprioritized. Patient report given, questions answered & plan of care reviewed with Yris HEREDIA.
[2018-11-26] MEDS: midodrine 5mg tablet PO SCH ×2 (08:22→16:24)
[2018-11-26] MEDS: montelukast 10mg tablet PO SCH (08:22)
[2018-11-26] MEDS: docusate sod 100mg capsule PO SCH ×2 (08:22→21:00)
[2018-11-26] MEDS: pantoprazole 40mg Tablet.DR PO SCH (08:22)
[2018-11-26] MEDS: FLUoxetine 20mg capsule PO SCH (08:22)
[2018-11-26] MEDS: multivitamins, therapeutics tablet PO SCH (08:23)
[2018-11-26] MEDS: gabapentin 100mg capsule PO SCH ×3 (08:23→21:00)
[2018-11-26] MEDS: atorvastatin 10mg tablet PO SCH (08:23)
[2018-11-26] MEDS: thiamine 100mg tablet PO SCH (08:23)
[2018-11-26] MEDS: aspirin 81mg tablet.DR PO SCH (08:23)
[2018-11-26] MEDS: folic acid 1mg tablet PO SCH (08:23)
[2018-11-26] MEDS: HYDROcodone/acetaminophen 10/325mg tab PO PRN ×4 (08:33→22:19)
[2018-11-26 08:40] LABS: BASOPHILS # (AUTO) 0.1 X10'3 (0-0.2); BASOPHILS % (AUTO) 0.7 % (0-1); EOSINOPHILS # (AUTO) 0.3 X10'3 (0-0.9); EOSINOPHILS % (AUTO) 3.3 % (0-6); HEMATOCRIT 28.9 % (42.0-52.0); HEMOGLOBIN 9.4 g/dl (14.0-17.9); LYMPHOCYTES # (AUTO) 2.5 X10'3 (1.1-4.8); LYMPHOCYTES % (AUTO) 29.1 % (21-51); MEAN CORPUSCULAR HEMOGLOBIN 28.4 PG (27.0-31.0); MEAN CORPUSCULAR HGB CONC 32.6 g/dL (33.0-36.5); MEAN CORPUSCULAR VOLUME 87.1 FL (78-98); MEAN PLATELET VOLUME 8.1 FL (7.4-10.4); MONOCYTES # (AUTO) 1.3 X10'3 (0-0.9); MONOCYTES % (AUTO) 15.5 % (2-12); NEUTROPHILS # (AUTO) 4.4 X10'3 (1.8-7.7); NEUTROPHILS % (AUTO) 51.4 % (42-75); PLATELET COUNT 408 X10'3 (140-440); RED BLOOD COUNT 3.31 X10'6 (4.70-6.10); RED CELL DISTRIBUTION WIDTH 16.4 % (11.5-14.5); WHITE BLOOD COUNT 8.5 X10'3 (4.5-11.0)
[2018-11-26] MEDS ORDERED: furosemide 40mg/4ml inj IV ONE (08:55)
[2018-11-26 09:01] LABS: ALBUMIN 2.6 G/DL (3.4-5.0); ANION GAP 4 (8-16); BLOOD UREA NITROGEN 21 MG/DL (7-18); BUN/CREATININE RATIO 21.4 (5.4-32.0); CALCIUM 7.8 MG/DL (8.5-10.1); CHLORIDE 106 MMOL/L (99-107); CREATININE 0.98 MG/DL (0.60-1.10); GLUCOSE 132 MG/DL (70-104); PHOSPHORUS 3.2 MG/DL (2.3-4.5); POTASSIUM 5.1 MMOL/L (3.5-5.1); SODIUM 141 MMOL/L (135-145); TOTAL CARBON DIOXIDE 30.8 MMOL/L (24-32); eGFR 76 ML/MIN
[2018-11-26 09:15] LABS: TOTAL CELLS COUNTED 100
[2018-11-26] MEDS ORDERED: potassium Cl 20 mEq SR tablet PO PRN (09:15)
[2018-11-26] MEDS ORDERED: potassium Cl 20mEq/100mL bag 100 ML IV PRN (09:15)
[2018-11-26] MEDS ORDERED: magnesium 2GM in 50ml NS 50 ML IV PRN (09:15)
[2018-11-26] MEDS ORDERED: magnesium 4gm in 100ml NS 100 ML IV PRN (09:15)
[2018-11-26 09:29] LABS: ANISOCYTOSIS 1+; PLATELET ESTIMATE NORMAL
[2018-11-26 09:30] LABS: ACANTHOCYTES FEW; BURR CELLS FEW; LARGE PLATELETS FEW; POLYCHROMASIA FEW
[2018-11-26 09:31] LABS: SCHISTOCYTES FEW
[2018-11-26] MEDS: insulin Lispro (HumaLOG) vial - multi-dose SQ SCH ×2 (09:38→22:09)
[2018-11-26] MEDS: JUVEN Shake w/Arg/Glut/Ca2+Bmb (Juven 19.3gm) pkt 240ml PO SCH ×2 (12:30→17:30)
[2018-11-26] MEDS ORDERED: midodrine tablet 2.5 MG TABLET PO SCH (16:00)
--- NOTE | 2018-11-26 17:07 | NUR ---
Reassessment: Pt has been transferred out of critical care to ACCE. Patient's appetite seems to be improving, documented with 50-75% PO intake of meals with 75% PO intake of ONS likely closely meeting nutrient needs. Pt now on hyperglycemia protocol with improving control of blood sugars, 91 this afternoon down from the 300s last night. LBM 11/26. Will continue to follow. F/u: Pt/family seen by RD for written/verbal CABG/HH diet eds w/ RD contact information provided. Family reports pt picky eater and has specific food preferences that do not align w/ current diet order. Surgeon has OK'd some liberalization to food brought in from outside given pt low PO hx 0-25% avg meals fluctuating past 8 days. Family is going to try bringing in premier protein from outside. Pt was agreeable to ham/eggs/pancakes w/ breakfasts, turkey/mashed potatoes w/ gravy BIDLD; dietary notified. Pt also reports disliking Glucernas and agreeable to try chocolate ensure high proteins; dietary notified. Pt/family were also provided w/ alternative menu write-in list in order to provide more options. LBM 11/22 on colace. Will continue to monitor for PO hx and additional protein needs post-op. Rec: 1. advance diet per MD to carb controlled/heart healthy post-op 2. chocolate ensure high protein TIDWM 3. routine bowel care 4. premier protein from home; honor pt food preferences; see above 5. weekly wts Addendum: 11/26/18 at [address] Amended: Links added.
[2018-11-26] MEDS: potassium Cl 20 mEq SR tablet PO SCH (20:00)
[2018-11-26] MEDS: magnesium Cl slow-release 64mg tablet PO SCH (21:00)
[2018-11-26] MEDS: insulin glargine (Lantus) pen - multi-dose SQ SCH (22:10)
[2018-11-27] MEDS: midodrine tablet 2.5 MG TABLET PO SCH ×3 (00:15→17:07)
[2018-11-27] MEDS: midodrine 5mg tablet PO SCH ×3 (00:15→17:06)
[2018-11-27 02:00] VITALS: BP 121/78
[2018-11-27] MEDS: albuterol 2.5 MG/3 ML nebule NEB SCH ×4 (02:16→20:43)
[2018-11-27] MEDS: HYDROcodone/acetaminophen 10/325mg tab PO PRN ×5 (03:07→20:41)
[2018-11-27 06:00] VITALS: BP 107/63
[2018-11-27 06:10] LABS: BASOPHILS % (AUTO) 0.4 % (0-1); EOSINOPHILS # (AUTO) 0.3 X10'3 (0-0.9); EOSINOPHILS % (AUTO) 3.1 % (0-6); HEMATOCRIT 25.2 % (42.0-52.0); HEMOGLOBIN 8.4 g/dl (14.0-17.9); LYMPHOCYTES % (AUTO) 23.8 % (21-51); MEAN CORPUSCULAR HEMOGLOBIN 28.8 PG (27.0-31.0); MEAN CORPUSCULAR HGB CONC 33.3 g/dL (33.0-36.5); MEAN CORPUSCULAR VOLUME 86.2 FL (78-98); MEAN PLATELET VOLUME 7.9 FL (7.4-10.4); MONOCYTES # (AUTO) 1.3 X10'3 (0-0.9); MONOCYTES % (AUTO) 15.7 % (2-12); NEUTROPHILS # (AUTO) 4.8 X10'3 (1.8-7.7); PLATELET COUNT 436 X10'3 (140-440); RED BLOOD COUNT 2.92 X10'6 (4.70-6.10); WHITE BLOOD COUNT 8.5 X10'3 (4.5-11.0)
--- NOTE | 2018-11-27 06:20 | NUR ---
Problems reprioritized. Patient report given, questions answered & plan of care reviewed with GIOVANNA Sawant.
[2018-11-27 06:32] LABS: ALBUMIN 2.5 G/DL (3.4-5.0); ANION GAP 3 (8-16); BLOOD UREA NITROGEN 24 MG/DL (7-18); CALCIUM 7.9 MG/DL (8.5-10.1); CHLORIDE 104 MMOL/L (99-107); CREATININE 1.09 MG/DL (0.60-1.10); GLUCOSE 237 MG/DL (70-104); POTASSIUM 4.8 MMOL/L (3.5-5.1); SODIUM 138 MMOL/L (135-145); TOTAL CARBON DIOXIDE 31.3 MMOL/L (24-32); eGFR 67 ML/MIN
--- NOTE | 2018-11-27 06:34 | NUR ---
Patient in room MED 312. I have received report from GIOVANNA Barksdale and had the opportunity to ask questions and assume patient care.
[2018-11-27 07:31] LABS: ANISOCYTOSIS 1+; PLATELET ESTIMATE NORMAL; POLYCHROMASIA FEW; TOTAL CELLS COUNTED 100
[2018-11-27 07:32] LABS: HYPOCHROMASIA 1+; LARGE PLATELETS FEW; SCHISTOCYTES FEW
[2018-11-27 07:33] LABS: REACTIVE LYMPHOCYTES % 1 % (0-0)
[2018-11-27] MEDS: pantoprazole 40mg Tablet.DR PO SCH (07:56)
[2018-11-27 08:08] LABS: MAGNESIUM 1.8 MG/DL (1.5-2.4)
[2018-11-27] MEDS: gabapentin 100mg capsule PO SCH ×3 (08:10→20:42)
[2018-11-27] MEDS: folic acid 1mg tablet PO SCH (08:11)
[2018-11-27] MEDS: aspirin 81mg tablet.DR PO SCH (08:11)
[2018-11-27] MEDS: docusate sod 100mg capsule PO SCH ×2 (08:11→20:42)
[2018-11-27] MEDS: magnesium Cl slow-release 64mg tablet PO SCH ×2 (08:11→20:41)
[2018-11-27] MEDS: FLUoxetine 20mg capsule PO SCH (08:11)
[2018-11-27] MEDS: atorvastatin 10mg tablet PO SCH (08:11)
[2018-11-27] MEDS: multivitamins, therapeutics tablet PO SCH (08:14)
[2018-11-27] MEDS: montelukast 10mg tablet PO SCH (08:14)
[2018-11-27] MEDS: thiamine 100mg tablet PO SCH (08:14)
[2018-11-27] MEDS: potassium Cl 20 mEq SR tablet PO SCH ×2 (08:14→20:41)
[2018-11-27] MEDS: insulin Lispro (HumaLOG) vial - multi-dose SQ SCH ×2 (09:12→19:10)
[2018-11-27 11:00] VITALS: BP 118/70
[2018-11-27] MEDS: JUVEN Shake w/Arg/Glut/Ca2+Bmb (Juven 19.3gm) pkt 240ml PO SCH ×2 (12:30→17:30)
--- NOTE | 2018-11-27 14:33 | NUR ---
NON-COMPLIANCE: PATIENT EXTREMELY NON-COMPLIANT WITH CARB CONTROLLED DIET. WITNESSED PATIENT ON PHONE WITH PLACING FOOD ORDER FOR TACO SORIA OR BAHRAINI FOOD. REFUSES TO DRINK DIET DRINKS, INSISTS ON DRINK FULL-SUGAR SODAS. PATIENT EDUCATED THOROUGHLY ON IMPORTANCE OF ADHERING TO PROPER DIET IN ORDER TO GAIN TIGHTER CONTROL ON GLUCOSE NUMBERS TO AVOID EXTREME HIGHS AND LOWS TO FACILITATE HEALING POST CABG. PATIENT VERBALIZED UNDERSTANDING AND STATED "I DON'T CARE, I DON'T LIKE YOUR FOOD, I'M GOING TO EAT WHATEVER I WANT, AND I WANT TACO SORIA"
[2018-11-27 15:00] VITALS: BP 113/59
[2018-11-27] MEDS: insulin glargine (Lantus) pen - multi-dose SQ SCH (23:16)
[2018-11-28] VITALS (7 sets, daily range): BP systolic 104–125; BP diastolic 62–78
[2018-11-28] MEDS: midodrine 5mg tablet PO SCH ×3 (00:48→16:24)
[2018-11-28] MEDS: HYDROcodone/acetaminophen 10/325mg tab PO PRN ×5 (01:23→20:09)
[2018-11-28] MEDS: albuterol 2.5 MG/3 ML nebule NEB SCH ×4 (02:33→20:54)
[2018-11-28 06:14] LABS: BASOPHILS # (AUTO) 0.1 X10'3 (0-0.2); BASOPHILS % (AUTO) 0.6 % (0-1); EOSINOPHILS # (AUTO) 0.3 X10'3 (0-0.9); EOSINOPHILS % (AUTO) 3.4 % (0-6); HEMATOCRIT 25.7 % (42.0-52.0); HEMOGLOBIN 8.6 g/dl (14.0-17.9); LYMPHOCYTES % (AUTO) 20.7 % (21-51); MEAN CORPUSCULAR HGB CONC 33.5 g/dL (33.0-36.5); MEAN CORPUSCULAR VOLUME 86.4 FL (78-98); MEAN PLATELET VOLUME 7.8 FL (7.4-10.4); MONOCYTES # (AUTO) 1.2 X10'3 (0-0.9); MONOCYTES % (AUTO) 12.2 % (2-12); NEUTROPHILS # (AUTO) 6.1 X10'3 (1.8-7.7); NEUTROPHILS % (AUTO) 63.1 % (42-75); PLATELET COUNT 524 X10'3 (140-440); RED BLOOD COUNT 2.98 X10'6 (4.70-6.10); RED CELL DISTRIBUTION WIDTH 16.2 % (11.5-14.5); WHITE BLOOD COUNT 9.7 X10'3 (4.5-11.0)
[2018-11-28 06:40] LABS: ALBUMIN 2.5 G/DL (3.4-5.0); ANION GAP 4 (8-16); BLOOD UREA NITROGEN 23 MG/DL (7-18); BUN/CREATININE RATIO 22.3 (5.4-32.0); CALCIUM 7.9 MG/DL (8.5-10.1); CHLORIDE 105 MMOL/L (99-107); CREATININE 1.03 MG/DL (0.60-1.10); GLUCOSE 271 MG/DL (70-104); POTASSIUM 5.1 MMOL/L (3.5-5.1); SODIUM 138 MMOL/L (135-145); TOTAL CARBON DIOXIDE 29.4 MMOL/L (24-32); eGFR 72 ML/MIN
--- NOTE | 2018-11-28 07:00 | NUR ---
Patient in room MED 312. I have received report from GIOVANNA Young and had the opportunity to ask questions and assume patient care.
[2018-11-28] MEDS: potassium Cl 20 mEq SR tablet PO SCH ×2 (07:57→20:00)
[2018-11-28] MEDS: magnesium Cl slow-release 64mg tablet PO SCH ×2 (08:00→20:08)
--- NOTE | 2018-11-28 08:28 | NUR ---
PAGED RT FOR TREATMENT "CAN YOU COME DO A TREATMENT FOR 312. SPO2 LOW 80S. THANK YOU, NITA SOTO [id number]"
[2018-11-28 08:56] LABS: MAGNESIUM 1.6 MG/DL (1.5-2.4)
[2018-11-28] MEDS: docusate sod 100mg capsule PO SCH ×2 (09:05→20:08)
[2018-11-28] MEDS: pantoprazole 40mg Tablet.DR PO SCH (09:05)
[2018-11-28] MEDS: aspirin 81mg tablet.DR PO SCH (09:05)
[2018-11-28] MEDS: multivitamins, therapeutics tablet PO SCH (09:06)
[2018-11-28] MEDS: folic acid 1mg tablet PO SCH (09:06)
[2018-11-28] MEDS: atorvastatin 10mg tablet PO SCH (09:08)
[2018-11-28] MEDS: midodrine tablet 2.5 MG TABLET PO SCH ×3 (09:09→16:24)
[2018-11-28] MEDS: gabapentin 100mg capsule PO SCH ×3 (09:10→22:07)
[2018-11-28] MEDS: FLUoxetine 20mg capsule PO SCH (09:10)
[2018-11-28] MEDS: thiamine 100mg tablet PO SCH (09:11)
[2018-11-28] MEDS: montelukast 10mg tablet PO SCH (09:11)
[2018-11-28] MEDS: insulin Lispro (HumaLOG) vial - multi-dose SQ SCH ×3 (09:17→22:25)
[2018-11-28] MEDS ORDERED: magnesium 2GM in 50ml NS 50 ML IV ONE (10:15)
[2018-11-28] MEDS: dextrose ORAL solution 15 GM/59 ML bottle PO PRN ×2 (12:15→12:35)
[2018-11-28] MEDS: JUVEN Shake w/Arg/Glut/Ca2+Bmb (Juven 19.3gm) pkt 240ml PO SCH ×2 (12:30→20:19)
--- NOTE | 2018-11-28 13:00 | NUR ---
Went in to perform accucheck at 1200 hours. Patient glucose is 26, repeated and got 37. Patient is sleepy but arousable. I had Hannah RN get me the glucose shots from the omnicelle. Patient drank 2 shots per protocol. Checked blood glucose 15 minutes later and result was still critical at 38, gave 2 more shots of dextrose and rechecked 15 minutes later per protocol. Patient became very agitated. Recheck result was 47 at this time I gave half an amp of IV dextrose and rechecked in 15 minutes per protocol. Result was 100. Patient was less agitated at this point. Allowed patient to eat his noon meal. Spent approx 1.5 hours with patient during this episode. Patient is non-compliant, refusing to eat hospital meals provided and instead his life-partner brings in food for him. This particular meal he had a hamburger and greek fries for lunch. I will continue to monitor patient for this shift.
--- NOTE | 2018-11-28 14:35 | NUR ---
Patient leaving [facility]E unit for chest xray. Patient is stable and alert and oriented. Leaving by wheelchair.
--- NOTE | 2018-11-28 14:45 | NUR ---
Patient arrived back to the floor by wheel chair. Put back in bed. Patient is stable and alert and oriented.
--- NOTE | 2018-11-28 18:00 | NUR ---
Patient in room MED 312. I have received report from KELI HEREDIA and had the opportunity to ask questions and assume patient care.
--- NOTE | 2018-11-28 18:30 | NUR ---
Problems reprioritized. Patient report given, questions answered & plan of care reviewed with GIOVANNA Cramer.
[2018-11-29] VITALS (7 sets, daily range): BP systolic 106–127; BP diastolic 60–80
[2018-11-29] MEDS: midodrine 5mg tablet PO SCH ×3 (00:29→18:23)
[2018-11-29] MEDS: midodrine tablet 2.5 MG TABLET PO SCH ×3 (00:29→18:22)
[2018-11-29] MEDS: HYDROcodone/acetaminophen 10/325mg tab PO PRN ×5 (00:33→22:24)
[2018-11-29] MEDS: albuterol 2.5 MG/3 ML nebule NEB SCH ×4 (02:27→20:43)
[2018-11-29 06:15] LABS: BASOPHILS % (AUTO) 0.4 % (0-1); EOSINOPHILS # (AUTO) 0.3 X10'3 (0-0.9); EOSINOPHILS % (AUTO) 2.7 % (0-6); HEMATOCRIT 27.4 % (42.0-52.0); HEMOGLOBIN 8.9 g/dl (14.0-17.9); LYMPHOCYTES # (AUTO) 1.8 X10'3 (1.1-4.8); LYMPHOCYTES % (AUTO) 17.6 % (21-51); MEAN CORPUSCULAR HEMOGLOBIN 28.4 PG (27.0-31.0); MEAN CORPUSCULAR HGB CONC 32.5 g/dL (33.0-36.5); MEAN CORPUSCULAR VOLUME 87.3 FL (78-98); MEAN PLATELET VOLUME 7.7 FL (7.4-10.4); MONOCYTES # (AUTO) 1.1 X10'3 (0-0.9); MONOCYTES % (AUTO) 11.1 % (2-12); NEUTROPHILS # (AUTO) 6.8 X10'3 (1.8-7.7); NEUTROPHILS % (AUTO) 68.2 % (42-75); PLATELET COUNT 567 X10'3 (140-440); RED BLOOD COUNT 3.14 X10'6 (4.70-6.10)
--- NOTE | 2018-11-29 06:20 | NUR ---
Patient in room MED 312. I have received report from GIOVANNA Cramer and had the opportunity to ask questions and assume patient care.
[2018-11-29 06:22] LABS: ALBUMIN 2.7 G/DL (3.4-5.0); ANION GAP 7 (8-16); BLOOD UREA NITROGEN 20 MG/DL (7-18); BUN/CREATININE RATIO 19.4 (5.4-32.0); CALCIUM 7.9 MG/DL (8.5-10.1); CHLORIDE 104 MMOL/L (99-107); CREATININE 1.03 MG/DL (0.60-1.10); GLUCOSE 258 MG/DL (70-104); MAGNESIUM 2.7 MG/DL (1.5-2.4); SODIUM 140 MMOL/L (135-145); TOTAL CARBON DIOXIDE 29.3 MMOL/L (24-32); eGFR 72 ML/MIN
[2018-11-29 07:07] LABS: GIANT PLATELET FEW; LARGE PLATELETS FEW; PLATELET ESTIMATE INCREASED
[2018-11-29] MEDS: magnesium Cl slow-release 64mg tablet PO SCH ×2 (08:00→20:24)
[2018-11-29] MEDS: potassium Cl 20 mEq SR tablet PO SCH ×2 (08:00→20:24)
[2018-11-29] MEDS: aspirin 81mg tablet.DR PO SCH (08:16)
[2018-11-29] MEDS: docusate sod 100mg capsule PO SCH ×2 (08:16→20:24)
[2018-11-29] MEDS: pantoprazole 40mg Tablet.DR PO SCH (08:16)
[2018-11-29] MEDS: folic acid 1mg tablet PO SCH (08:17)
[2018-11-29] MEDS: atorvastatin 10mg tablet PO SCH (08:17)
[2018-11-29] MEDS: FLUoxetine 20mg capsule PO SCH (08:21)
[2018-11-29] MEDS: gabapentin 100mg capsule PO SCH ×3 (08:21→20:50)
[2018-11-29] MEDS: montelukast 10mg tablet PO SCH (08:21)
[2018-11-29] MEDS: multivitamins, therapeutics tablet PO SCH (08:22)
[2018-11-29] MEDS: thiamine 100mg tablet PO SCH (08:33)
[2018-11-29] MEDS: insulin Lispro (HumaLOG) vial - multi-dose SQ SCH ×3 (08:37→21:51)
[2018-11-29] MEDS: furosemide 40mg/4ml inj IV SCH (09:51)
[2018-11-29] MEDS: ondansetron/PF 4mg/2ml inj IV PRN (10:30)
--- NOTE | 2018-11-29 10:31 | NUR ---
PPatient transferred from chair to bed, then began vomiting, Zofran pulled and administered at this time.
--- NOTE | 2018-11-29 11:38 | NUR ---
Reassessment: Pt called RD regarding if dietitian can see pt for food preferences since wants pt to eat hospital food and no longer wants to bring food in from outside. Pt PO continues to fluctuate between 50-75% and 0-25% meals post-op; not including food brought in from outside as pt is picky eater per family. Pt seen by RD and provided heart healthy alternative menu write-in list after RD reviewed pt menu. Pt very fatigued and barely able to stay awake during RD visit so only breakfast was reviewed w/ pt food preferences taken and d/w dietary. Dietary notified so accessibility lift technician is to see pt for breakfast and lunch preferences tomorrow and to be seen daily by accessibility lift technician for optimal menu choices to optimize PO. LBM 11/28 receiving colace. Pt GLU was 20-40 at noon yesterday w/ Lantus d/c'd GLU now 220. Will continue to monitor. Rec: 1. continue carb controlled diet 2. chocolate Louis shake BIDLD 3. routine bowel care 4. premier protein from home; honor pt food preferences; see above 5. thiamin/MVI/folic for possible etoh hx per MD 6. weekly wts Addendum: 11/29/18 at [address] Amended: Links added.
--- NOTE | 2018-11-29 12:00 | NUR ---
During 1200 accucheck, patient's accucheck was 49 and the recheck was 37, By following protocol I administered 2 glucose shots po and then rechecked and patient's blood glucose came back at 59. Patient did not want to drink another glucose shot as he needed to use the toilet. He had a BM and then came back and ate his noon meal. Approx 50%. I rechecked his blood glucose and the result was 129. Patient reported that he did not feel any symptoms of a low blood sugar and he never became agitated. Priyanka propellant charge zone assembler nurse today, contacted [facility], and new orders put in for patient to be level 1 with the hyperglycemic protocol and no more Lantus to be given. Will continue to monitor patient for duration of shift.
[2018-11-29] MEDS: dextrose ORAL solution 15 GM/59 ML bottle PO PRN (12:12)
[2018-11-29] MEDS: JUVEN Shake w/Arg/Glut/Ca2+Bmb (Juven 19.3gm) pkt 240ml PO SCH ×2 (12:30→17:30)
--- NOTE | 2018-11-29 18:00 | NUR ---
Patient in room MED 312. I have received report from Faith HEREDIA and had the opportunity to ask questions and assume patient care.
--- NOTE | 2018-11-29 18:15 | NUR ---
Problems reprioritized. Patient report given, questions answered & plan of care reviewed with GIOVANNA Cramer.
[2018-11-29] MEDS: oxyCODONE IR 5mg (immed. release) tablet PO PRN (20:59)
[2018-11-30 02:00] VITALS: BP 97/54
[2018-11-30] MEDS: albuterol 2.5 MG/3 ML nebule NEB SCH ×2 (02:42→09:32)
[2018-11-30] MEDS: HYDROcodone/acetaminophen 10/325mg tab PO PRN ×3 (02:57→12:23)
[2018-11-30 05:53] LABS: ALBUMIN 2.6 G/DL (3.4-5.0); ANION GAP 8 (8-16); BLOOD UREA NITROGEN 24 MG/DL (7-18); BUN/CREATININE RATIO 21.1 (5.4-32.0); CALCIUM 8.3 MG/DL (8.5-10.1); CHLORIDE 100 MMOL/L (99-107); CREATININE 1.14 MG/DL (0.60-1.10); GLUCOSE 248 MG/DL (70-104); SODIUM 136 MMOL/L (135-145); TOTAL CARBON DIOXIDE 28.1 MMOL/L (24-32); eGFR 64 ML/MIN
[2018-11-30 06:00] VITALS: BP 133/63
[2018-11-30] MEDS: pantoprazole 40mg Tablet.DR PO SCH (07:47)
[2018-11-30] MEDS: midodrine tablet 2.5 MG TABLET PO SCH ×2 (07:52)
[2018-11-30] MEDS: aspirin 81mg tablet.DR PO SCH (07:52)
[2018-11-30] MEDS: furosemide 40mg/4ml inj IV SCH (07:52)
[2018-11-30] MEDS: thiamine 100mg tablet PO SCH (07:53)
[2018-11-30] MEDS: midodrine 5mg tablet PO SCH ×2 (07:53)
[2018-11-30] MEDS: atorvastatin 10mg tablet PO SCH (07:53)
[2018-11-30] MEDS: gabapentin 100mg capsule PO SCH ×2 (07:53→13:53)
[2018-11-30] MEDS: magnesium Cl slow-release 64mg tablet PO SCH (07:53)
[2018-11-30] MEDS: multivitamins, therapeutics tablet PO SCH (07:54)
[2018-11-30] MEDS: FLUoxetine 20mg capsule PO SCH (07:54)
[2018-11-30] MEDS: folic acid 1mg tablet PO SCH (07:54)
[2018-11-30] MEDS: montelukast 10mg tablet PO SCH (07:55)
[2018-11-30] MEDS: docusate sod 100mg capsule PO SCH (07:55)
[2018-11-30] MEDS: potassium Cl 20 mEq SR tablet PO SCH (07:55)
[2018-11-30] MEDS ORDERED: furosemide 40mg/4ml inj IV SCH (08:00)
[2018-11-30] MEDS ORDERED: heparin, porcine 5000 units/ml vial SQ SCH (08:00)
[2018-11-30] MEDS: insulin Lispro (HumaLOG) vial - multi-dose SQ SCH ×2 (08:15→13:57)
[2018-11-30 11:00] VITALS: BP 96/60
[2018-11-30] MEDS ORDERED: MIDO5TAB4 PO (12:40)
--- NOTE | 2018-11-30 14:30 | NUR ---
CALLED REPORT TO NURSE SHERIDAN AT [facility] AT THIS TIME.
--- NOTE | 2018-11-30 14:45 | NUR ---
PATIENT DISCHARGED AT THIS TIME PER KEIKO CARGO VIA W/C. [facility]AG[facility] TO GO. CALLED TO MAKE AWARE OF TRANSFER, LEFT VOICEMAIL.
--- NOTE | 2018-11-30 14:45 | NUR ---
[place] documentation and med administration: I have reviewed and agree with all interventions, assessments performed and documented by Jessica HEREDIA.
== END 2018-11-30 14:45 | DRG 216 ==
LOC: SSTAY O 14:31 → MED 3N 19:43 → ICU 2S 11-18 09:26 → MED 3N 11-26 13:25
PROVIDERS: ADMIT Internal Medicine Interventional Cardiology; ATTEND Thoracic Surgery (Cardiothoracic Vascular Surgery)
PROC: 4A023N7 Measurement of Cardiac Sampling and Pressure, Left Heart, Percutaneous Approach (ICD-10-PCS; 2018-11-15)
PROC: B2111ZZ Fluoroscopy of Multiple Coronary Arteries using Low Osmolar Contrast (ICD-10-PCS; 2018-11-15)
PROC: B2151ZZ Fluoroscopy of Left Heart using Low Osmolar Contrast (ICD-10-PCS; 2018-11-15)
PROC: B3251ZZ Computerized Tomography (CT Scan) of Bilateral Common Carotid Arteries using Low Osmolar Contrast (ICD-10-PCS; 2018-11-17)
PROC: B32G1ZZ Computerized Tomography (CT Scan) of Bilateral Vertebral Arteries using Low Osmolar Contrast (ICD-10-PCS; 2018-11-17)
PROC: B3281ZZ Computerized Tomography (CT Scan) of Bilateral Internal Carotid Arteries using Low Osmolar Contrast (ICD-10-PCS; 2018-11-17)
PROC: 02100Z9 Bypass Coronary Artery, One Artery from Left Internal Mammary, Open Approach (ICD-10-PCS; 2018-11-18)
PROC: 021209W Bypass Coronary Artery, Three Arteries from Aorta with Autologous Venous Tissue, Open Approach (ICD-10-PCS; 2018-11-18)
PROC: 06BQ4ZZ Excision of Left Saphenous Vein, Percutaneous Endoscopic Approach (ICD-10-PCS; 2018-11-18)
PROC: 30233M1 Transfusion of Nonautologous Plasma Cryoprecipitate into Peripheral Vein, Percutaneous Approach (ICD-10-PCS; 2018-11-18)
PROC: 30233N1 Transfusion of Nonautologous Red Blood Cells into Peripheral Vein, Percutaneous Approach (ICD-10-PCS; 2018-11-18)
PROC: 30233R1 Transfusion of Nonautologous Platelets into Peripheral Vein, Percutaneous Approach (ICD-10-PCS; 2018-11-18)
PROC: 5A1221Z Performance of Cardiac Output, Continuous (ICD-10-PCS; 2018-11-18)
PROC: B24BZZ4 Ultrasonography of Heart with Aorta, Transesophageal (ICD-10-PCS; 2018-11-18)
PROC: 02HV33Z Insertion of Infusion Device into Superior Vena Cava, Percutaneous Approach (ICD-10-PCS; 2018-11-18)
PROC: 4A133B3 Monitoring of Arterial Pressure, Pulmonary, Percutaneous Approach (ICD-10-PCS; 2018-11-18)
PROC: 02HQ32Z Insertion of Monitoring Device into Right Pulmonary Artery, Percutaneous Approach (ICD-10-PCS; 2018-11-18)
PROC: 02UG0JZ Supplement Mitral Valve with Synthetic Substitute, Open Approach (ICD-10-PCS; principal; 2018-11-18 06:50)
PROC: 30233N1 Transfusion of Nonautologous Red Blood Cells into Peripheral Vein, Percutaneous Approach (ICD-10-PCS; 2018-11-20)
PROC: 30233N1 Transfusion of Nonautologous Red Blood Cells into Peripheral Vein, Percutaneous Approach (ICD-10-PCS; 2018-11-24)
DX: I25.10 Atherosclerotic heart disease of native coronary artery without angina pectoris (principal); I50.33 Acute on chronic diastolic (congestive) heart failure; E87.0 Hyperosmolality and hypernatremia; J98.11 Atelectasis; D62 Acute posthemorrhagic anemia; D68.8 Other specified coagulation defects; I08.1 Rheumatic disorders of both mitral and tricuspid valves; R94.30 Abnormal result of cardiovascular function study, unspecified; I27.20 Pulmonary hypertension, unspecified; Z99.81 Dependence on supplemental oxygen; E10.51 Type 1 diabetes mellitus with diabetic peripheral angiopathy without gangrene; E78.00 Pure hypercholesterolemia, unspecified; E78.5 Hyperlipidemia, unspecified; E87.8 Other disorders of electrolyte and fluid balance, not elsewhere classified; I11.0 Hypertensive heart disease with heart failure; I67.9 Cerebrovascular disease, unspecified; J43.9 Emphysema, unspecified; I65.21 Occlusion and stenosis of right carotid artery; E87.5 Hyperkalemia; T45.525A Adverse effect of antithrombotic drugs, initial encounter; N28.9 Disorder of kidney and ureter, unspecified; E10.649 Type 1 diabetes mellitus with hypoglycemia without coma; Z82.3 Family history of stroke; Z82.49 Family history of ischemic heart disease and other diseases of the circulatory system; Z86.74 Personal history of sudden cardiac arrest; Z87.891 Personal history of nicotine dependence; Z79.82 Long term (current) use of aspirin; Z90.49 Acquired absence of other specified parts of digestive tract; Y92.89 Other specified places as the place of occurrence of the external cause
CPT/HCPCS: 0232T; 93306; 93312; 93325; 93459; 36415; 36600; 70496; 70498; 71045; 71046; 80048; 80053; 81003; 82330; 82435; 82803; 82947; 82948; 83036; 83735; 84100; 84132; 84295; 85018; 85025; 85027; 85347; 85384; 85576; 85610; 85730; 86885; 86900; 86901; 86920; 87081; 93005; 93880; 93970; 94002; 94003; 94010; 94640; 94667; 94668; 94760; 97110; 97116; 97162; 97530; 97535; 99152; A4618; A4620; A6258; A6402; A6449; A7000; A7048; C1713; C1751; C1769; C1894; C9113; G0378; J0131; J0171; J0690; J1265; J1644; J1815; J1940; J2001; J2060; J2150; J2250; J2260; J2270; J2370; J2405; J2440; J2597; J2704; J2720; J2795; J2930; J3010; J3370; J3475; J3480; J3490; J7030; J7040; J7042; J7050; J7120; J7626; P9012; P9016; P9035; P9045; P9047; Q0163; Q9967